=== PATIENT | male | born 1950 | race African-American/Black ===

== ENCOUNTER 2017-05-07 09:07 | Outpatient (CLI) | payer MEDICARE ==
--- NOTE | 2017-05-07 10:54 | ULT ---
BILATERAL RENAL ULTRASOUND: Date: 05/07/17 HISTORY: Chronic renal disease. FINDINGS: The right kidney measures 9.8 cm in length and the left kidney measures 9.2 cm in length. No focal m ass or hydronephrosis is seen. No shadowing calculi are identified. Cortical echogenicity and thickn ess is normal. The urinary bladder volume is 128 mL. The bladder has a normal appearance. IMPRESSION: Unremarkable exam. POS: TERRY
== END 2017-05-07 09:08 | disposition home or self-care (01) ==
LOC: ULT 09:07
PROVIDERS: ATTEND Internal Medicine Nephrology
DX: N18.2 Chronic kidney disease, stage 2 (mild) (principal)
CPT/HCPCS: 76770

== ENCOUNTER 2017-11-10 20:30 | Inpatient (IN) | payer MEDICARE ==
[2017-11-10] MEDS ORDERED: Nitroglycerin 50 MG/250 ML BOT 250 ML ONE (20:51)
[2017-11-10 21:00] LABS: #Basophils 0.1 thou/uL (0.0-0.2); #Eosinphils 0.3 thou/uL (0.0-0.7); #Lymphocytes 1.4 thou/uL (1.20-3.40); #Monocytes 0.7 thou/uL (0.11-0.59); #Neutrophils 3.5 thou/uL (1.40-6.50); %Basophils 0.9 % (0.0-1.0); %Eosinophils 4.9 % (0.0-10.0); %Lymphocytes 23.8 % (21.0-51.0); %Monocytes 11.2 % (0.0-10.0); %Neutrophils 59.3 % (42.0-75.0); Hemoglobin 13.4 g/dL (14.0-18.0); Mean Corpuscular HGB CONC 32.9 g/dL (32.0-36.0); Mean Corpuscular Hemoglobin 30.3 pg (27.0-31.0); Mean Corpuscular Volume 92.1 fl (80.0-94.0); Mean Platelet Volume 6.9 fL (7.4-10.4); Platelet Count 168 thou/uL (130-400); RBC Distribution Width 11.5 % (11.5-14.5); Red Blood Cell (RBC) Count 4.42 mill/uL (4.70-6.10); White Blood Cell (WBC) Count 5.8 thou/uL (4.8-10.8)
--- NOTE | 2017-11-10 21:20 | RAD ---
UPRIGHT PORTABLE CHEST ONE VIEW: 11/10/17 HISTORY: 67-year-old male with history of dyspnea and trouble breathing for several days. COMPARISON: There is cardiomegaly with some bilateral vascular congestion. No confluent pneumonia, overt edema, o r pleural effusion. IMPRESSION: Cardiomegaly with mild vascular congestion, stable from prior study. POS: RUTH
[2017-11-10 21:27] LABS: CKMB 1.8 ng/mL (0-6.6); Troponin I Less than 0.010 ng/mL (< 0.028)
[2017-11-10 22:05] LABS: Anion Gap 10 mmol/L (10-20); BUN (Urea Nitrogen) 14 mg/dL (8.4-25.7); Calc. Creatinine Clearance 0 mL/min (70-130); Carbon Dioxide 35 mmol/L (23-31); Chloride 99 mmol/L (98-107); Estimated GFR-MDRD 64; Potassium 4.5 mmol/L (3.5-5.1); Sodium 139 mmol/L (136-145)
[2017-11-10 22:06] LABS: ALT (SGPT) 16 U/L (8-55); AST (SGOT) 19 U/L (5-34); Albumin 4.2 g/dL (3.4-4.8); Alkaline Phosphatase 78 U/L (40-150); Bilirubin, Total 0.4 mg/dL (0.2-1.2); Calcium 9.2 mg/dL (7.8-10.44); Globulin 3.4 g/dL (2.4-3.5); Glucose 120 mg/dL (80-115); Protein, Total 7.6 g/dL (5.8-8.1)
[2017-11-10] MEDS ORDERED: Furosemide 40 MG/4 ML VIAL ONE (22:18)
[2017-11-11] MEDS ORDERED: Nitroglycerin 2% Ointment 1 INCH/1 GM Packet ONE (00:08)
[2017-11-11 01:05] VITALS: BMI 45.9
[2017-11-11] MEDS ORDERED: Nitroglycerin 2% Ointment 1 INCH/1 GM Packet TOP PRN (02:46)
[2017-11-11] MEDS: cloNIDine 0.1 MG TAB PO PRN (02:51)
--- NOTE | 2017-11-11 08:39 | HP ---
CHIEF COMPLAINT: Shortness of breath and elevated blood pressure. HISTORY OF PRESENT ILLNESS: This is a pleasant 67-year-old gentleman with a history of multiple medi linda problems to include obesity, hypertension, hyperlipidemia, and diabetes. He presents he states with a several day history of increasing shortness of breath and orthopnea. He denied drinking too many fluids and also having excess salt intake. He denies any chest, arm or thomas k pain. However, he became concerned as he could not breathe. He presented to the hospital and was found to have acute hypoxia and respiratory distress. Therefore, given IV diuretics and later sent t o IMCU. Currently the patient is on BiPAP. He seems to be hemodynamically stable, in no acute distr ess. His BNP was not impressive, less than 100. PAST MEDICAL HISTORY: 1. Diabetes. 2. Hypertension. 3. Hyperlipidemia. 4. Obesity. 5. Obstructive sleep apnea. 6. History of congestive heart failure. 7. Chronic kidney disease. 8. History of anemia. PAST SURGICAL HISTORY: History of coronary disease with stent placement in the past. Also, history of EGD and colonoscopy in 2004 with polyp resections in the colon, benign. ALLERGIES: None. MEDICATIONS: 1. Coreg 25 mg b.i.d. 2. Clonidine 0.1 mg b.i.d. 3. B12 1000 mcg 4. Lasix 40 mg every day. 5. Neurontin 300 mg t.i.d. 6. Isosorbide 30 mg every day. 7. Metformin 1000 mg b.i.d. 8. Multivitamin every day. 9. Nitroglycerin 0.4 sublingual p.r.n. chest pain. 10. Zocor 20 mg at bedtime. 11. Terazosin 5 mg every day. SOCIAL HISTORY: He does not smoke, he does not drink alcohol. FAMILY HISTORY: Negative. REVIEW OF SYSTEMS: GENERAL: Admits to weakness and fatigue, no fever or chills. HEENT: No diplopia or amaurosis fugax, tinnitus or hoarseness. CARDIOVASCULAR: No chest, arm or back pain. PULMONARY: See history of present illness. GASTROINTESTINAL: No GI bleed, constipation, diarrhea. GENITOURINARY: No dysuria, nocturia, oliguria, polyuria. ENDOCRINE: No polydipsia or heat or cold intolerance. MUSCULOSKELETAL: Admits to arthralgia. No lupus or myopathy. NEURO: No history of TIA or seizure. All systems are negative. PHYSICAL EXAMINATION: GENERAL: Pleasant gentleman who appears to be in no acute distress. He is on BiPAP. VITAL SIGNS: His vital signs are much better than when he came in. His blood pressure was 220 when he came in, now is 170/78, pulse 70, respirations 20. He is afebrile. NECK: Supple. JVP cannot be assessed due to obese neck. Carotid had good upstroke with no thyromeg niurka. COR: Regular rate and rhythm. CHEST: Symmetrical. Clear to auscultation and percussion upper lobes; however, bibasilar crackles. ABDOMEN: Soft, obese, nontender. Normoactive bowel sounds. No bruit or organomegaly. EXTREMITIES: No edema or cyanosis. He had palpable pedal pulses. SKIN: There is no evidence of ulcer, lesion or rash. NEUROLOGIC: He is awake, alert, and oriented to person, place, and time. LABORATORY: White blood cell 5.8, H&H 13.4 and 40.8, platelet 168. His BUN is 14, creatinine 1.34. Liver enzymes normal. BNP is unremarkable. His cardiac enzymes are normal as well. His chest x-ra y showed cardiomegaly with vascular congestion. ASSESSMENT: 1. Acute respiratory failure. 2. History of congestive heart failure. 3. Obstructive sleep apnea. 4. Hypertensive urgency. 5. Diabetes. 6. Hyperlipidemia. 7. Chronic renal insufficiency. 8. Multiple medical problems. PLAN: 1. The patient will be admitted where he will be diuresed with IV diuretics. We will check echocard iogram since it has been over a year for that. 2. We will begin checking blood sugars a.c. and at bedtime and placed on a controlled fat diet/ 1800 ADA diet. 3. We will check CBC, CMP, lipid profile, and hemoglobin A1c and chest x-ray tomorrow morning. 4. 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 5. We will resume his home medications. The patient verbalized understanding and all questions answered to satisfaction.
[2017-11-11] MEDS ORDERED: Dextrose 5% in Water 1,000 ML IV PRN (08:43)
[2017-11-11] MEDS ORDERED: Insulin Regular 300 UNITS/3 ML VIAL SC PRN (08:43)
[2017-11-11] MEDS ORDERED: Dextrose 50% Abboject 50 ML SYRINGE IVP PRN (08:43)
[2017-11-11] MEDS ORDERED: Furosemide 40 MG/4 ML VIAL SLOW IVP SCH (08:45)
[2017-11-11] MEDS ORDERED: Prevnar 13-Val Conj/PF 0.5 ML SYRINGE IM ONE (09:00)
[2017-11-11] MEDS: Prenatal Vitamin 1 TAB PO SCH (10:56)
[2017-11-11] MEDS: cloNIDine 0.1 MG TAB PO SCH ×2 (10:56→20:38)
[2017-11-11] MEDS: Cyanocobalamin (Vitamin B-12) 1,000 MCG TAB PO SCH (10:57)
[2017-11-11] MEDS: Carvedilol 25 MG TAB PO SCH ×2 (10:57→20:38)
[2017-11-11] MEDS: Gabapentin 300 MG CAP PO SCH ×3 (10:57→20:38)
--- NOTE | 2017-11-11 12:05 | CON ---
DATE OF CONSULTATION: 11/11/2017 SERVICE: Pulmonary Medicine. REASON FOR CONSULTATION: Respiratory failure. HISTORY OF PRESENT ILLNESS: The patient is a 67-year-old -[place] male with past medical history significant for hypertension. He was previously on Lasix. This was stopped about [address], he went to a routine outpatient followup appointment with Dr. Nance yesterday. At that appointment, he reported having a cough for a day or two, but did not think much of it. He was not having any shortness of breath at that time. After leaving the appointment, at about 3:00 or 4:00 in the afternoon, he started having increasing dyspnea that became very severe. He ultimately presented to the Emergency Department and was found to have pulmonary edema. He was given some Lasix. His blood pressures were extraordinarily elevated and he was put on nitro paste. Once his blood pressures became under better control, his breathing and oxygen requirements improved dramatically. He currently denies any fevers, chills, nausea, vomiting, dysuria, diarrhea, constipation, new rashes, arthralgia. PAST MEDICAL HISTORY: 1. Hypertension. 2. Obstructive sleep apnea, severe. 3. Type 2 diabetes mellitus. 4. Hypertension. 5. Dyslipidemia. 6. Morbid obesity. 7. Chronic kidney disease. 8. Anemia. 9. Heart failure. PAST SURGICAL HISTORY: 1. Percutaneous coronary intervention. 2. EGD. 3. Colonoscopy. 4. Polyp resection of the colon. ALLERGIES: No known drug allergies. MEDICATIONS: List of his outpatient medications was reviewed. He is on three separate medications that drop blood pressure. Of note, he was not taking Lasix prior to this admission. SOCIAL HISTORY: Negative for alcohol, tobacco or illicit drug use. He has no exposure to chemicals, dust asbestos or tuberculosis. FAMILY HISTORY: Noncontributory. REVIEW OF SYSTEMS: General, head, eyes, nose, throat, cardiovascular, respiratory, GI, , musculoskeletal, neurologic and skin is negative except as mentioned in the HPI. PHYSICAL EXAMINATION: VITAL SIGNS: Afebrile, pulse 69, blood pressure 168/71, respirations 20, saturation 100% on room air now. HEENT: Normocephalic, atraumatic. Sclerae are white, conjunctivae pink. Oral mucosa is moist without lesions. GENERAL: The patient is awake, alert, no apparent distress. LUNGS: Decent air entry. Crackles are present. There is not a prolonged expiratory phase, though there are some minimal wheezing present. HEART: Normal rate, regular. ABDOMEN: Soft, nontender, nondistended. Bowel sounds are positive. MUSCULOSKELETAL: No cyanosis or clubbing. There is trace to 1+ pitting in the left lower extremity. There is trace pitting in the right lower extremity. GENITOURINARY: No Rico. NEUROLOGIC: Grossly nonfocal. LABORATORY DATA: Sodium 139. Creatinine 1.34. Basic metabolic profile is otherwise unremarkable. Liver function studies are negative. BNP is 77. Troponin is 0.01. Hemoglobin 13.4. CBC is otherwise unremarkable. IMAGING: Chest x-ray demonstrates soft tissue attenuation. Interstitial fullness is present. Pulmonary vascular congestion is present. The cardiac silhouette is enlarged, though this is a portable film. Otherwise, there is no acute cardiopulmonary abnormality identified. ASSESSMENT: 1. Acute hypoxic respiratory failure, resolved. 2. Acute on chronic diastolic heart failure. 3. Hypertensive emergency. 4. Obstructive sleep apnea. 5. Diabetes mellitus. PLAN: The CPAP will be continued at night as the patient has known sleep apnea. He has been weaned down to room air. We will continue to diurese him until he returns to euvolemia. He will likely need to go out on Lasix as he previously was not taking this medication in the outpatient setting. As long as his blood pressures remained under decent control, we should be able to avoid future episodes of this. Repeat echocardiogram is currently pending. I will add magnesium to tomorrow morning's laboratories and start a daily dose of p.o. Lasix. Pulmonary Critical Care will continue to follow in this location. I will notify Dr. Nance that his patient is in the hospital. 70 minutes have been devoted to this patient in various activities. I personally reviewed all imaging studies and laboratory data noted within this document. For fifty percent of this time, I was interacting with the patient at the bedside or coordinating care with the care team. For the remainder of the time I was immediately available to the patient in the hospital unit. ARIA
[2017-11-11] MEDS: metFORMIN 500 MG TAB PO SCH (17:03)
[2017-11-11] MEDS: Atorvastatin Calcium 10 MG TAB PO SCH (20:38)
[2017-11-11] MEDS: Terazosin HCl 5 MG CAP PO SCH (20:38)
[2017-11-12] MEDS: cloNIDine 0.1 MG TAB PO PRN (03:18)
[2017-11-12 04:38] LABS: #Eosinphils 0.2 thou/uL (0.0-0.7); #Lymphocytes 1.2 thou/uL (1.20-3.40); #Monocytes 0.7 thou/uL (0.11-0.59); #Neutrophils 4.1 thou/uL (1.40-6.50); %Basophils 0.1 % (0.0-1.0); %Eosinophils 3.8 % (0.0-10.0); %Lymphocytes 19.2 % (21.0-51.0); %Monocytes 11.2 % (0.0-10.0); %Neutrophils 65.6 % (42.0-75.0); Hemoglobin 12.2 g/dL (14.0-18.0); Mean Corpuscular HGB CONC 32.8 g/dL (32.0-36.0); Mean Corpuscular Hemoglobin 30.4 pg (27.0-31.0); Mean Corpuscular Volume 92.8 fl (80.0-94.0); Mean Platelet Volume 6.5 fL (7.4-10.4); Platelet Count 150 thou/uL (130-400); RBC Distribution Width 11.5 % (11.5-14.5); Red Blood Cell (RBC) Count 4.02 mill/uL (4.70-6.10); White Blood Cell (WBC) Count 6.3 thou/uL (4.8-10.8)
[2017-11-12 04:44] LABS: Hemoglobin A1c 5.9 % (4.0-6.0)
[2017-11-12 04:48] LABS: ALT (SGPT) 15 U/L (8-55); AST (SGOT) 16 U/L (5-34); Albumin 3.9 g/dL (3.4-4.8); Alkaline Phosphatase 72 U/L (40-150); Anion Gap 11 mmol/L (10-20); BUN (Urea Nitrogen) 19 mg/dL (8.4-25.7); Bilirubin, Total 0.3 mg/dL (0.2-1.2); Calc. Creatinine Clearance 91 mL/min (70-130); Carbon Dioxide 37 mmol/L (23-31); Cardiac Risk 3.1 (Less than 4.5); Chloride 93 mmol/L (98-107); Cholesterol 132 mg/dl (< 200 Desired); Estimated GFR-MDRD 53; Globulin 3.2 g/dL (2.4-3.5); Glucose 137 mg/dL (80-115); HDL Cholesterol 42 mg/dL (>60 Neg Risk); LDL Cholesterol, Calculated 79 mg/dL; Magnesium 1.6 mg/dL (1.6-2.6); Potassium 4.8 mmol/L (3.5-5.1); Protein, Total 7.1 g/dL (5.8-8.1); Sodium 136 mmol/L (136-145); Triglycerides 56 mg/dL (Less than 150)
--- NOTE | 2017-11-12 08:31 | PRG ---
DATE OF SERVICE: 11/12/2017 SUBJECTIVE: The patient had a good night. He is off of the BiPAP. He is breathing much better he s tated. He just ate breakfast and had a good breakfast. He denies any chest, arm or back pain. He s tates he is still hungry as he only ate oatmeal. PHYSICAL EXAMINATION: GENERAL: He is awake, alert, and oriented to person, place, and time. VITAL SIGNS: Blood pressure is high this morning at 7, 180/86, pulse 60, respiration 22, temperature 99.1. NECK: Supple. JVP cannot be assessed due to obese neck. Carotid had good upstroke with no thyromeg niurka. COR: Regular rate and rhythm. CHEST: Symmetrical. Clear to auscultation and percussion upper lobes, few crackles bibasilar. ABDOMEN: Soft, obese, nontender with normoactive bowel sounds. There is no bruit or organomegaly. EXTREMITIES: No edema or cyanosis. He had palpable pedal pulses. SKIN: There is no evidence of ulcers, lesion or rash. NEUROLOGIC: He is awake, alert, and oriented to person, place, and time. LABORATORY DATA: His white blood cell 6.3, H&H 12.2 and 37.3, platelet count is 150. His creatinine is 1.58. His blood sugar is 137. ASSESSMENT: 1. Respiratory failure. 2. Acute on chronic congestive heart failure. 3. Hypertensive emergency. 4. Diabetes. 5. Obstructive sleep apnea. 6. Obesity. 7. Multiple medical problems. PLAN: We will continue the same plan for now. We will go up on his blood pressure medication. I fe el like the patient is stable enough to go to telemetry if okay with Dr. Ivory. We will follow up with lab tomorrow. All questions were answered to the patient's satisfaction.
--- NOTE | 2017-11-12 08:57 | RAD ---
SINGLE VIEW OF THE CHEST: COMPARISON: 11/10/17. HISTORY: Shortness of breath. FINDINGS: A single view of the chest shows a normal-size cardiomediastinal silhouette. There is no evidence of consolidation, mass, or pleural effusion. The bones are unremarkable. IMPRESSION: No evidence of acute cardiopulmonary disease. POS: OFF
[2017-11-12] MEDS: metFORMIN 500 MG TAB PO SCH ×2 (08:59→16:55)
[2017-11-12] MEDS: cloNIDine 0.1 MG TAB PO SCH ×3 (08:59→21:57)
[2017-11-12] MEDS: Carvedilol 25 MG TAB PO SCH ×2 (08:59→21:57)
[2017-11-12] MEDS: Furosemide 40 MG TAB PO SCH (08:59)
[2017-11-12] MEDS: Cyanocobalamin (Vitamin B-12) 1,000 MCG TAB PO SCH (09:00)
[2017-11-12] MEDS: Gabapentin 300 MG CAP PO SCH ×3 (09:00→21:57)
[2017-11-12] MEDS: Prenatal Vitamin 1 TAB PO SCH (09:00)
--- NOTE | 2017-11-12 10:52 | PRG ---
DATE OF SERVICE: 11/12/2017 The patient was admitted with difficulty breathing. He said he is better. PHYSICAL EXAMINATION: VITAL SIGNS: Sats are 96 on 2 liters, respirations 20, blood pressure 170/78, temperature 99. CHEST: Chest revealed decreased breath sounds, no wheezing. CARDIAC: Normal S1, S2, no gallops. ABDOMEN: Soft, no mass. EXTREMITIES: Trace edema. LABORATORY DATA: White count 6000, H&H 12 and 37, platelet count 150, creatinine 1.5. X-ray shows no acute infiltrate. IMPRESSION: 1. Acute on chronic respiratory failure. 2. Chronic obstructive pulmonary disease exacerbation. 3. Sleep apnea. 4. Renal failure. 5. Diabetes, poor compliance. PLAN: Nebs, Symbicort, nocturnal ventilation. I will follow while in the IM.
[2017-11-12] MEDS: Mometasone/Formoterol 120 PUFF INHALER INH SCH (18:39)
[2017-11-12] MEDS: Atorvastatin Calcium 10 MG TAB PO SCH (21:57)
[2017-11-12] MEDS: Terazosin HCl 5 MG CAP PO SCH (21:57)
[2017-11-13 05:30] LABS: ALT (SGPT) 15 U/L (8-55); AST (SGOT) 16 U/L (5-34); Albumin 3.8 g/dL (3.4-4.8); Alkaline Phosphatase 70 U/L (40-150); BUN (Urea Nitrogen) 24 mg/dL (8.4-25.7); Bilirubin, Total 0.3 mg/dL (0.2-1.2); Calc. Creatinine Clearance 83 mL/min (70-130); Calcium 9.1 mg/dL (7.8-10.44); Estimated GFR-MDRD 48; Globulin 3.1 g/dL (2.4-3.5); Glucose 120 mg/dL (80-115); Magnesium 1.5 mg/dL (1.6-2.6); Protein, Total 6.9 g/dL (5.8-8.1)
[2017-11-13 05:39] LABS: Anion Gap 14 mmol/L (10-20); Carbon Dioxide 34 mmol/L (23-31); Chloride 94 mmol/L (98-107); Potassium 4.8 mmol/L (3.5-5.1); Sodium 137 mmol/L (136-145)
[2017-11-13] MEDS: Mometasone/Formoterol 120 PUFF INHALER INH SCH ×2 (06:46→18:41)
--- NOTE | 2017-11-13 08:50 | PRG ---
DATE OF SERVICE: 11/13/2017 SUBJECTIVE: The patient had a good night. He is sitting in the chair. He is breathing okay. He de nies any complaints. PHYSICAL EXAMINATION: GENERAL: Upon evaluation, he is awake, alert, and oriented to person, place and time. VITAL SIGNS: His blood pressure is 140/60, pulse 63, respiration 22. He is afebrile. NECK: Supple with no increased JVP or carotid bruit. Carotid had good upstroke with no thyromegaly. COR: Regular rate and rhythm. CHEST: Symmetrical. Clear to auscultation and percussion. ABDOMEN: Soft, obese, nontender. Normoactive bowel sounds. There is no bruit or organomegaly. EXTREMITIES: No edema or cyanosis. Palpable pedal pulses. SKIN: There is no evidence of ulceration, lesion, or rash. NEUROLOGIC: He is awake, alert, and oriented to person, place, and time. ASSESSMENT: 1. Acute on chronic congestive heart failure. 2. Hypertension. 3. Obesity. 4. Diabetes. 5. Noncompliance. PLAN: I thought the patient is ready to go to telemetry; however, I think there are not any beds, so we will keep here until there is a bed available. We will follow up with CMP in the morning. His l ast chest x-ray was negative, so we will not repeat that for right now. I appreciate Dr. Nance follow ing the patient along with us. This is SHEN Salmeron-Edward dictating for Dr. Kale Alejandro.
[2017-11-13] MEDS: Furosemide 40 MG TAB PO SCH (09:06)
[2017-11-13] MEDS: Carvedilol 25 MG TAB PO SCH ×2 (09:06→20:25)
[2017-11-13] MEDS: Cyanocobalamin (Vitamin B-12) 1,000 MCG TAB PO SCH (09:07)
[2017-11-13] MEDS: Prenatal Vitamin 1 TAB PO SCH (09:07)
[2017-11-13] MEDS: Gabapentin 300 MG CAP PO SCH ×3 (09:07→20:25)
[2017-11-13] MEDS: cloNIDine 0.1 MG TAB PO SCH ×3 (09:07→20:25)
[2017-11-13] MEDS: metFORMIN 500 MG TAB PO SCH ×2 (09:09→18:13)
[2017-11-13] MEDS: Atorvastatin Calcium 10 MG TAB PO SCH (20:25)
[2017-11-13] MEDS: Terazosin HCl 5 MG CAP PO SCH (20:25)
[2017-11-14] MEDS: cloNIDine 0.1 MG TAB PO PRN (00:41)
[2017-11-14 05:36] LABS: ALT (SGPT) 14 U/L (8-55); AST (SGOT) 15 U/L (5-34); Albumin 3.8 g/dL (3.4-4.8); Alkaline Phosphatase 71 U/L (40-150); BUN (Urea Nitrogen) 28 mg/dL (8.4-25.7); Bilirubin, Total 0.4 mg/dL (0.2-1.2); Calc. Creatinine Clearance 100 mL/min (70-130); Calcium 9.3 mg/dL (7.8-10.44); Estimated GFR-MDRD 60; Glucose 116 mg/dL (80-115); Magnesium 1.5 mg/dL (1.6-2.6); Protein, Total 6.8 g/dL (5.8-8.1)
[2017-11-14 05:45] LABS: Anion Gap 16 mmol/L (10-20); Carbon Dioxide 32 mmol/L (23-31); Chloride 93 mmol/L (98-107); Potassium 4.3 mmol/L (3.5-5.1); Sodium 137 mmol/L (136-145)
[2017-11-14 07:17] VITALS: TEMP 98.1
[2017-11-14] MEDS: Prenatal Vitamin 1 TAB PO SCH (08:36)
[2017-11-14] MEDS: Gabapentin 300 MG CAP PO SCH (08:36)
[2017-11-14] MEDS: metFORMIN 500 MG TAB PO SCH (08:36)
[2017-11-14] MEDS: Cyanocobalamin (Vitamin B-12) 1,000 MCG TAB PO SCH (08:36)
[2017-11-14] MEDS: cloNIDine 0.1 MG TAB PO SCH (08:36)
[2017-11-14] MEDS: Furosemide 40 MG TAB PO SCH (08:36)
[2017-11-14] MEDS: Carvedilol 25 MG TAB PO SCH (08:36)
[2017-11-14 08:37] VITALS: BP 184/97
--- NOTE | 2017-11-14 11:15 | PRG ---
DATE OF SERVICE: 11/13/2017 SUBJECTIVE: Ned Alejandro appears to be at his baseline, no shortness of breath , no coughing. OBJECTIVE: VITAL SIGNS: Sats are 91% on room air, temperature 98, blood pressure 184/87. CHEST: Decreased breath sounds, no wheezing. CARDIAC: Normal S1, S2, no gallops. ABDOMEN: Soft. LABORATORY DATA: Creatinine is 1.73. IMPRESSION: 1. Chronic obstructive pulmonary disease exacerbation. 2. Morbid obesity. 3. Sleep apnea. 4. Diabetes. 5. Severe deconditioning. PLAN: He appears to be at his baseline. He can be transferred home anytime. ARIA
[2017-11-14] MEDS: Mometasone/Formoterol 120 PUFF INHALER INH SCH (11:16)
--- NOTE | 2017-11-14 13:58 | PRG ---
DATE OF SERVICE: 11/14/2017 SUBJECTIVE: This morning, he is better, he is less short of breath. OBJECTIVE: VITAL SIGNS: His blood pressure is 180/90, sats are 94, respirations 33, temperature 98. He is afeb rile. CHEST: Decreased breath sounds, no wheezing. CARDIAC: Normal S1, S2, no gallops. ABDOMEN: Soft without any masses. LABORATORY DATA: Creatinine 1.43. IMPRESSION: 1. Chronic obstructive pulmonary disease. 2. Congestive heart failure. 3. Obstructive sleep apnea. 4. Noncompliance. 5. Renal failure. PLAN: He appears to be stable enough to be transferred out of the MICU. Hopefully, he will be disch arged home in the next day or two. Pulmonary will follow.
--- NOTE | 2017-11-15 19:39 | DIS ---
DATE OF DISCHARGE: 11/14/2017 FINAL DIAGNOSES: 1. Acute on chronic congestive heart failure. 2. Hypertension urgency. 3. Obesity. 4. Diabetes. 5. Hyperlipidemia. COMPLICATIONS: None. PROCEDURES: None. CONSULTANTS: Dr. Ivory. HOSPITAL COURSE: This is a pleasant gentleman, who presents to the hospital with increasing shortnes s of breath. He was diuresed with IV diuretics. His home medications were resumed. His blood press ure medication had to be adjusted from clonidine 0.1 mg b.i.d. to 0.1 t.i.d. The patient's IV diuret ics were eventually changed to p.o. His blood pressure remained good. He was on BiPAP and eventuall y got off his BiPAP. His breathing was good. He was able to get in the chair. He was diuresing wel l. He had no chest pain. He had no breathing problems. We did place 11/13/2017 to move to [facility]; however, they deny any bed so therefore he stayed in [facility]. His lab showed BNP 28, creatinin e 1.43. His blood sugar was anywhere from 128-173. His white blood cell count was normal. His H&H was 12.2 and 37.3, platelet count was 150. His chest x-ray showed no evidence of acute cardiopulmona ry disease. The patient was ready to go home. He had no complaints. He was discharged home 018 in stable condition. Diet was controlled fat/1800 calorie ADA diet with no salt. DISCHARGE MEDICATIONS: 1. Coreg 25 mg b.i.d. 2. Gabapentin 300 mg t.i.d. 3. Metformin 1000 mg b.i.d. 4. Nitroglycerin 0.4 mg SL p.r.n. chest pain as directed. 5. Simvastatin 20 mg at bedtime. 6. Actos 45 mg every day. 7. Potassium 20 mEq every day. 8. Isosorbide 30 mg every day. 9. Lasix 40 mg in the morning. 10. Clonidine 0.1 mg t.i.d. 11. Terazosin 5 mg every day. FOLLOWUP: He will followup with Dr. Alejandro in 1 week or prior to that if he has any complications. T he patient verbalized understanding. Total time spent with this patient after reviewing the patient dictating with 30 minutes. This is Sherlyn Olguin MARKET RESEARCH CONSULTANT-C dictating for Dr. Kale Alejandro M.D.
== END 2017-11-14 15:56 | disposition home or self-care (01) | DRG 291 ==
LOC: ERS 20:30 → IMCU/EMU 22:45
PROVIDERS: ADMIT Specialist; ATTEND Specialist
DX: I13.0 Hypertensive heart and chronic kidney disease with heart failure and stage 1 through stage 4 chronic kidney disease, or unspecified chronic kidney disease (principal); J96.01 Acute respiratory failure with hypoxia; N17.9 Acute kidney failure, unspecified; I50.33 Acute on chronic diastolic (congestive) heart failure; Z68.42 Body mass index [BMI] 45.0-49.9, adult; J44.1 Chronic obstructive pulmonary disease with (acute) exacerbation; E11.22 Type 2 diabetes mellitus with diabetic chronic kidney disease; E66.01 Morbid (severe) obesity due to excess calories; E78.5 Hyperlipidemia, unspecified; G47.33 Obstructive sleep apnea (adult) (pediatric); N18.9 Chronic kidney disease, unspecified; Z79.84 Long term (current) use of oral hypoglycemic drugs; I25.10 Atherosclerotic heart disease of native coronary artery without angina pectoris; Z95.5 Presence of coronary angioplasty implant and graft; I16.0 Hypertensive urgency; Z91.19 Patient's noncompliance with other medical treatment and regimen
CPT/HCPCS: 36415; 36416; 71045; 80053; 80061; 82553; 83036; 83735; 83880; 84484; 85025; 93005; 93306; 93798; 94640; 94660; 96365; 96366; 96374; J1940; J7620

== ENCOUNTER 2019-06-20 18:27 | Observation (INO) | payer MEDICARE ==
[2019-06-20 18:59] LABS: #Eosinphils 0.3 thou/uL (0.0-0.7); #Lymphocytes 1.4 thou/uL (1.20-3.40); #Monocytes 0.6 thou/uL (0.11-0.59); #Neutrophils 3.7 thou/uL (1.40-6.50); %Basophils 0.3 % (0.0-1.0); %Eosinophils 5.2 % (0.0-10.0); %Lymphocytes 22.5 % (21.0-51.0); %Monocytes 10.3 % (0.0-10.0); %Neutrophils 61.8 % (42.0-75.0); Hemoglobin 12.9 g/dL (14.0-18.0); Mean Corpuscular HGB CONC 33.2 g/dL (32.0-36.0); Mean Corpuscular Hemoglobin 30.6 pg (27.0-31.0); Mean Corpuscular Volume 92.1 fL (78.0-98.0); Mean Platelet Volume 7.1 fL (7.4-10.4); Platelet Count 177 thou/uL (130-400); RBC Distribution Width 11.7 % (11.5-14.5)
--- NOTE | 2019-06-20 19:01 | RAD ---
FRONTAL RADIOGRAPH CHEST: 06/20/19 COMPARISON: 11/12/17 HISTORY: Short of breath. FINDINGS: Stable prominence of the cardiac silhouette. Heart and mediastinal contours are unchanged. No pneumot horax or pleural fluid. No focal consolidation or alveolar edema. IMPRESSION: No acute findings. POS: SANDEE
[2019-06-20] MEDS ORDERED: Aspirin Chewable 81 MG TAB ONE (19:19)
[2019-06-20] MEDS ORDERED: Nitroglycerin 2% Ointment 1 INCH/1 GM Packet ONE (19:19)
[2019-06-20] MEDS ORDERED: Nitroglycerin 0.4 MG TAB 1 EACH ONE (19:19)
[2019-06-20 19:20] LABS: ALT (SGPT) 23 U/L (8-55); AST (SGOT) 25 U/L (5-34); Albumin 4.4 g/dL (3.4-4.8); Alkaline Phosphatase 81 U/L (40-110); Anion Gap 12 mmol/L (10-20); BUN (Urea Nitrogen) 23 mg/dL (8.4-25.7); Bilirubin, Total 0.4 mg/dL (0.2-1.2); Calc. Creatinine Clearance 0 mL/min (70-130); Calcium 9.4 mg/dL (7.8-10.44); Carbon Dioxide 27 mmol/L (23-31); Chloride 104 mmol/L (98-107); Estimated GFR-MDRD 46; Globulin 3.5 g/dL (2.4-3.5); Glucose 95 mg/dL (80-115); Potassium 5.5 mmol/L (3.5-5.1); Protein, Total 7.9 g/dL (5.8-8.1); Sodium 137 mmol/L (136-145)
[2019-06-21 00:26] VITALS: BMI 43.2
[2019-06-21 01:15] LABS: Troponin I 0.012 ng/mL (< 0.028)
[2019-06-21] MEDS ORDERED: Furosemide 40 MG/4 ML VIAL SLOW IVP SCH (08:15)
[2019-06-21] MEDS ORDERED: Communication Order-Pharmacy FS SCH (08:15)
[2019-06-21] MEDS ORDERED: Nitroglycerin 0.4 MG TAB (25 Tab Bottle) SL PRN (08:17)
[2019-06-21] MEDS ORDERED: cloNIDine 0.1 MG TAB PO PRN (08:17)
--- NOTE | 2019-06-21 08:25 | CON ---
DATE OF CONSULTATION: 06/21/2019 REASON FOR CONSULTATION: Chest pain. 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 Alejandro is a very pleasant 69-year-old gentleman, who recently presented with unstable angina type symptoms. He states he has been in normal state of health when he had 4 episodes of chest pain several hours apart. They were relieved with nitroglycerin. He has had after fourth episode proceeded to the emergency room. His EKG did show some changes noted inferiorly when compared to previous EKG. He is currently chest pain free. PAST MEDICAL HISTORY: CAD, status post stent placement to the circumflex artery with 3.5 and a 3.0 PROMUS stent in 2009, hypertension, diabetes mellitus, obesity, hyperlipidemia, and obstructive sleep apnea. ALLERGIES: NONE. SOCIAL HISTORY: No current tobacco or alcohol use. HOME MEDICATIONS: Include Coreg, gabapentin, glipizide, Imdur, lisinopril, risperidone, Actos, clonidine, trazodone, metformin, and aspirin. REVIEW OF SYSTEMS: A 10-point review of systems is reviewed as above, otherwise negative. PHYSICAL EXAMINATION: GENERAL: Patient is a pleasant 69-year-old gentleman who is in no acute distress. The patient appears their stated age. VITAL SIGNS: Blood pressure 171/84, pulse 57, temperature afebrile. NEUROLOGIC: The patient is alert and oriented x3 with no focal neurologic deficits. HEENT: Sclerae without icterus. Mouth has moist mucous membranes with normal pallor. NECK: No JVD. Carotid upstroke brisk. No bruits bilaterally. LUNGS: Clear to auscultation with unlabored respirations. BACK: No scoliosis or kyphosis. CARDIAC: Regular rate and rhythm with normal S1 and S2. No S3 or S4 noted. No significant rubs, murmurs, thrills, or gallops noted throughout the precordium. PMI is not displaced. There is no parasternal heave. ABDOMEN: Soft, nontender, nondistended. No peritoneal signs present. No hepatosplenomegaly. No abnormal striae. EXTREMITIES: 2+ femoral and 2+ dorsalis pedis pulses. No cyanosis, clubbing, or edema. SKIN: No gross abnormalities. PERTINENT LABORATORY DATA: Hemoglobin 12.9, creatinine 1.77 with a creatinine clearance greater than 70. EKG normal sinus rhythm with inverted T-waves noted inferiorly. When compared to previous EKG 1 year ago, these appear new. IMPRESSION: 1. Unstable angina. 2. Coronary artery disease. 3. Status post stent placement. 4. Obstructive sleep apnea. RECOMMENDATIONS: At this point, given his recent history in addition to EKG changes, recommend coronary angiography plus PCI. I discussed procedure in full detail with Mr. Alejandro. Risks included, but not limited to the following: I discussed the procedure in full detail with the patient. The risks of the procedure were also discussed. The risks of the procedure include but are not limited to the following: , stroke, PR, need for emergency surgery, loss of limb, bleeding, and infection, as well as a reaction to the dye causing kidney failure and needing long-term dialysis. I also discussed the risks of PCI to include all of the above including coronary dissection and perforation in addition to acute stent thrombosis and restenosis. All questions about the procedure were answered. Given the above, the patient agreed to proceed with coronary angiography and possible PCI. All questions answered given the above. The patient agreed to proceed with above procedure. There are no contraindications to drug coated stent placement. We will proceed if needed. Further recommendations pending the above. Job ID: [id number]
[2019-06-21] MEDS: Sodium Chloride 0.9% 1,000 ML IV SCH ×3 (08:44→16:56)
[2019-06-21] MEDS: Gabapentin 300 MG CAP PO SCH ×2 (08:45→21:45)
[2019-06-21] MEDS: Aspirin Chewable 81 MG TAB PO SCH (08:46)
[2019-06-21] MEDS: Carvedilol 25 MG TAB PO SCH ×2 (08:46→21:45)
[2019-06-21] MEDS: Lisinopril 10 MG TAB PO SCH ×2 (08:46→21:45)
[2019-06-21] MEDS: hydrALAZINE 25 MG TAB PO SCH ×3 (08:47→21:45)
--- NOTE | 2019-06-21 11:55 | HP ---
CHIEF COMPLAINT: Chest pain. HISTORY OF PRESENT ILLNESS: The patient is a 69-year-old male, who has a prior history of coronary artery disease with stent placement, who states that a day prior to admission, he began to have substernal chest pain. He would take his oral nitroglycerin and it would go away. When finally on the day of admission, he repeated his nitroglycerin and the chest pain did not go away, then he came to the emergency room for further evaluation. There he was initially noted to have negative EKG changes, negative troponins, but with his extensive history and uncontrolled blood pressure, it was elected to put him in for further treatment. As an outpatient, the patient has been very compliant coming to the office with good blood sugars and good blood pressures. He has been taking his medicines and get his followup care as directed. Does not smoke or drink alcoholic beverages. States that he is wearing his CPAP. The patient's chest pain was substernal. It did not radiate. He was not diaphoretic or become short winded. There was no nausea or vomiting associated with it. It felt like pressure and initially was relieved with the oral sublingual nitroglycerin. In consultation with ER doctor, it was determined this being an unstable angina because he was at rest when it occurred. PAST MEDICAL HISTORY: As mentioned above is positive for hypertension, extreme obesity, obstructive sleep apnea, hypertension, coronary artery disease with stent placement x2, he has type 2 diabetes that has been well controlled with diet, high cholesterol, history of anemia, chronic kidney disease, as well as congestive heart failure in the past. PAST SURGICAL HISTORY: Positive for 2 stents. Additionally, had EGD and colonoscopy in 2004 where polyps were found and they returned benign. ALLERGIES: NONE. MEDICATIONS ON ADMISSION: Include: 1. Coreg 25 mg p.o. b.i.d. 2. Lasix 40 mg q.a.m. 3. Gabapentin 300 mg b.i.d. 4. Imdur 30 mg daily. 5. Nitroglycerin 0.4 mg sublingually p.r.n. q.5 minutes, if unrelieved after 3, go to the ER. 6. Zocor 20 mg q.h.s. 7. Aspirin 81 mg daily. 8. Lisinopril 10 mg b.i.d. 9. Hydralazine 25 mg p.o. t.i.d. 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 Does not smoke or drink alcohol and is . FAMILY HISTORY: Unremarkable. REVIEW OF SYSTEMS: CONSTITUTIONAL: Constitutionally on admission, denies fever, chills, or general malaise. HEENT: Denies drainage or sores in eyes, ears, nose, or throat. CHEST: Denies shortness of breath or cough. CARDIOVASCULAR: Denies palpitations, but does have substernal chest pain and pressure as reason for admission. GI: Denies nausea, vomiting, or diarrhea. : Denies blood in urine or stool or dysuria. MUSCULOSKELETAL: Denies any aches or pains in major joints. SKIN: No new rashes or lesions. LYMPHATICS: No new areas of edema. NEUROLOGIC: Denies headaches or any atypical hypoesthesia or paresthesias or trouble with mentation. PHYSICAL EXAMINATION: VITAL SIGNS: At the time of admission, blood pressure noted to be 224/98 initially and then it came down to 154/68; pulse has been in the 50s and 60s; respirations 18; temperature 98.6; pain scale initially as a 6 and 7, now down to 2; O2 saturation 96% on room air. GENERAL: This is a morbidly obese male, alert, oriented, cooperative. HEENT: Normocephalic, atraumatic. Pupils are equal, round, and reactive to light. Extraocular muscles are intact. TMs, nares, pharynx are clear. NECK: Supple. Unable to appreciate any bruits. CHEST: Clear to auscultation. HEART: Regular rate and rhythm without murmur. ABDOMEN: Obese. Unable to appreciate organomegaly. : Deferred. EXTREMITIES: Without clubbing or cyanosis. There is 1+ edema bilaterally. SKIN: No new rashes or lesions. NEUROLOGIC: Cranial nerves are intact. Gait and cerebellar function are not tested. Sensory exam is grossly intact. Mental status is at baseline and nonfocal. LABORATORY DATA: EKG on admission shows normal sinus rhythm at 65 beats per minute. No ectopy. Nonspecific T waves are noted. The chest x-ray on admission shows no acute findings. Troponins initially x3 are negative. Sodium 137, potassium 5.5, chloride 104, CO2 of 27, BUN 23, creatinine 1.77, glucose 95, ylwai-lk-lazt sugar at 174. Liver functions normal. WBCs at 6, hemoglobin 12.9, hematocrit 38.7 with platelets of 177. ASSESSMENT: 1. Unstable angina. 2. History of coronary artery disease with stents placement x2. 3. Qxf-zojugpr-grbsjeefm diabetic, controlled with diet and exercise this time. 4. Hyperlipidemia. 5. Hypertension has been well controlled as an outpatient, currently is uncontrolled. 6. Obstructive sleep apnea. 7. Extreme obesity. PLAN: Initially, a stress test, but with all his risk factors, Dr. Allen has decided to take him to the catheterization laboratory technician for further evaluation. He will be continued n.p.o. except for sips of water and his medications and we will serially re-evaluate and provide nitrates for pain and control his blood pressure. Job ID: [id number]
[2019-06-21 12:08] LABS: #Eosinphils 0.2 thou/uL (0.0-0.7); #Lymphocytes 1.1 thou/uL (1.20-3.40); #Monocytes 0.5 thou/uL (0.11-0.59); %Basophils 0.4 % (0.0-1.0); %Lymphocytes 23.6 % (21.0-51.0); %Monocytes 9.5 % (0.0-10.0); %Neutrophils 61.5 % (42.0-75.0); Hemoglobin 12.6 g/dL (14.0-18.0); Mean Corpuscular HGB CONC 32.5 g/dL (32.0-36.0); Mean Corpuscular Hemoglobin 29.5 pg (27.0-31.0); Mean Corpuscular Volume 90.9 fL (78.0-98.0); Mean Platelet Volume 6.9 fL (7.4-10.4); Platelet Count 170 thou/uL (130-400); RBC Distribution Width 11.6 % (11.5-14.5); Red Blood Cell (RBC) Count 4.28 mill/uL (4.70-6.10); White Blood Cell (WBC) Count 4.9 thou/uL (4.8-10.8)
[2019-06-21 12:16] LABS: Hemoglobin A1c 6.2 % (4.0-6.0)
[2019-06-21 12:33] LABS: Anion Gap 10 mmol/L (10-20); BUN (Urea Nitrogen) 23 mg/dL (8.4-25.7); Calc. Creatinine Clearance 79 mL/min (70-130); Calcium 9.5 mg/dL (7.8-10.44); Carbon Dioxide 29 mmol/L (23-31); Cardiac Risk 3.7 (Less than 4.5); Chloride 104 mmol/L (98-107); Cholesterol 134 mg/dl (< 200 Desired); Estimated GFR-MDRD 48; Glucose 121 mg/dL (80-115); HDL Cholesterol 36 mg/dL (>60 Neg Risk); LDL Cholesterol, Calculated 87 mg/dL; Potassium 5.2 mmol/L (3.5-5.1); Sodium 138 mmol/L (136-145); Triglycerides 55 mg/dL (Less than 150)
[2019-06-21] MEDS ORDERED: Iopamidol 370 76% 100 ML VIAL ONE (13:37)
[2019-06-21] MEDS ORDERED: Iopamidol 370 76% 50 ML VIAL FS ONE (13:37)
[2019-06-21] MEDS ORDERED: Heparin (Artline) 1,000 ML ONE (14:30)
[2019-06-21] MEDS ORDERED: Verapamil 5 MG/2 ML VIAL ONE (14:30)
[2019-06-21] MEDS ORDERED: Heparin 10,000 UNITS/1 ML VIAL ONE (14:30)
[2019-06-21] MEDS ORDERED: Nitroglycerin 100MG/250ML BOT 250 ML ONE (14:30)
[2019-06-21] MEDS ORDERED: Midazolam HCl 2 mg/2 ml Vial ONE (15:10)
[2019-06-21] MEDS ORDERED: Fentanyl 100 MCG/2 ML VIAL ONE (15:10)
[2019-06-21] MEDS ORDERED: Clopidogrel Bisulfate 300 MG TAB ONE (15:43)
[2019-06-21] MEDS ORDERED: Atorvastatin Calcium 10 MG TAB PO SCH (21:00)
[2019-06-22] MEDS: Sodium Chloride 0.9% 1,000 ML IV SCH (03:20)
[2019-06-22 05:49] LABS: #Eosinphils 0.2 thou/uL (0.0-0.7); #Lymphocytes 1.2 thou/uL (1.20-3.40); #Monocytes 0.7 thou/uL (0.11-0.59); #Neutrophils 3.2 thou/uL (1.40-6.50); %Basophils 0.5 % (0.0-1.0); %Eosinophils 4.5 % (0.0-10.0); %Lymphocytes 22.1 % (21.0-51.0); %Monocytes 12.4 % (0.0-10.0); %Neutrophils 60.5 % (42.0-75.0); Hemoglobin 12.3 g/dL (14.0-18.0); Mean Corpuscular HGB CONC 33.4 g/dL (32.0-36.0); Mean Corpuscular Hemoglobin 30.6 pg (27.0-31.0); Mean Corpuscular Volume 91.7 fL (78.0-98.0); Platelet Count 158 thou/uL (130-400); RBC Distribution Width 11.8 % (11.5-14.5); White Blood Cell (WBC) Count 5.2 thou/uL (4.8-10.8)
[2019-06-22 06:15] LABS: ALT (SGPT) 22 U/L (8-55); AST (SGOT) 23 U/L (5-34); Albumin 3.9 g/dL (3.4-4.8); Alkaline Phosphatase 73 U/L (40-110); Anion Gap 11 mmol/L (10-20); BUN (Urea Nitrogen) 24 mg/dL (8.4-25.7); Bilirubin, Total 0.4 mg/dL (0.2-1.2); Calc. Creatinine Clearance 75 mL/min (70-130); Calcium 8.6 mg/dL (7.8-10.44); Carbon Dioxide 27 mmol/L (23-31); Chloride 103 mmol/L (98-107); Estimated GFR-MDRD 46; Globulin 3.3 g/dL (2.4-3.5); Glucose 110 mg/dL (80-115); Potassium 4.9 mmol/L (3.5-5.1); Protein, Total 7.2 g/dL (5.8-8.1); Sodium 136 mmol/L (136-145)
--- NOTE | 2019-06-22 08:22 | PRG ---
DATE OF SERVICE: 06/22/2019 SUBJECTIVE: Mr. Alejandro feels much better today. No current complaints. He recently underwent stent placement to the circumflex artery with a 2.5 x 12 mm Synergy stent. OBJECTIVE: VITAL SIGNS: Blood pressure 159/77, pulse 55, temperature afebrile. LUNGS: Clear to auscultation. HEART: Regular rate and rhythm. ABDOMEN: Soft, nontender, nondistended. EXTREMITIES: No edema. IMPRESSION: 1. Coronary artery disease. 2. Status post stent placement. 3. Unstable angina. RECOMMENDATIONS: 1. Mr. Alejandro is doing well. 2. Continue aspirin 81 q.a.m. 3. Continue Plavix 75 q.a.m. 4. Continue carvedilol 25 b.i.d., atorvastatin 10 mg nightly and lisinopril 10 mg one p.o. b.i.d. From my standpoint, will be okay for discharge with close outpatient followup. Job ID: [id number]
[2019-06-22] MEDS: hydrALAZINE 25 MG TAB PO SCH ×2 (08:55→16:18)
[2019-06-22] MEDS: Gabapentin 300 MG CAP PO SCH (08:55)
[2019-06-22] MEDS: Aspirin Chewable 81 MG TAB PO SCH (08:56)
[2019-06-22] MEDS: Carvedilol 25 MG TAB PO SCH (08:56)
[2019-06-22] MEDS ORDERED: Clopidogrel Bisulfate 75 MG TAB PO SCH (09:00)
[2019-06-22 14:45] LABS: Anion Gap 12 mmol/L (10-20); BUN (Urea Nitrogen) 25 mg/dL (8.4-25.7); Calc. Creatinine Clearance 75 mL/min (70-130); Calcium 8.5 mg/dL (7.8-10.44); Carbon Dioxide 27 mmol/L (23-31); Chloride 102 mmol/L (98-107); Estimated GFR-MDRD 46; Glucose 117 mg/dL (80-115); Potassium 4.8 mmol/L (3.5-5.1); Sodium 136 mmol/L (136-145)
[2019-06-22 15:34] VITALS: BP 139/75; TEMP 98.2
[2019-06-22] MEDS ORDERED: Sodium Chloride 0.9% 1,000 ML IV SCH (15:45)
[2019-06-22 17:46] LABS: Anion Gap 12 mmol/L (10-20); BUN (Urea Nitrogen) 25 mg/dL (8.4-25.7); Calc. Creatinine Clearance 77 mL/min (70-130); Calcium 8.6 mg/dL (7.8-10.44); Carbon Dioxide 26 mmol/L (23-31); Chloride 102 mmol/L (98-107); Estimated GFR-MDRD 47; Glucose 129 mg/dL (80-115); Sodium 135 mmol/L (136-145)
--- NOTE | 2019-06-25 16:13 | EKG ---
Test Reason : Blood Pressure : / mmHG Vent. Rate : 060 BPM Atrial Rate : 060 BPM P-R Int : 180 ms QRS Dur : 090 ms QT Int : 394 ms P-R-T Axes : 065 035 044 degrees QTc Int : 394 ms Normal sinus rhythm Normal ECG When compared with ECG of 20-JUN-2019 18:36, (Unconfirmed) No significant change was found Confirmed by DR. Chris CONTRERAS ([id number]) on 06/25/2019 4:13:31 PM Referred By: Confirmed By:DR. Chris CONTRERAS
--- NOTE | 2019-06-25 16:16 | EKG ---
Test Reason : Blood Pressure : / mmHG Vent. Rate : 055 BPM Atrial Rate : 055 BPM P-R Int : 152 ms QRS Dur : 096 ms QT Int : 406 ms P-R-T Axes : 014 032 015 degrees QTc Int : 388 ms Sinus bradycardia Otherwise normal ECG When compared with ECG of 21-JUN-2019 17:17, (Unconfirmed) No significant change was found Confirmed by DR. Chris CONTRERAS ([id number]) on 06/25/2019 4:16:19 PM Referred By: KAMI Confirmed By:DR. Chris CONTRERAS
== END 2019-06-22 19:21 | disposition home or self-care (01) ==
LOC: ERS 18:27 → 2SW 20:45
PROVIDERS: ADMIT Specialist; ATTEND Specialist
PROC: 027034Z Dilation of Coronary Artery, One Artery with Drug-eluting Intraluminal Device, Percutaneous Approach (ICD-10-PCS; principal; 2019-06-21)
PROC: 4A023N7 Measurement of Cardiac Sampling and Pressure, Left Heart, Percutaneous Approach (ICD-10-PCS; 2019-06-21)
PROC: B2111ZZ Fluoroscopy of Multiple Coronary Arteries using Low Osmolar Contrast (ICD-10-PCS; 2019-06-21)
DX: I25.110 Atherosclerotic heart disease of native coronary artery with unstable angina pectoris (principal); I11.0 Hypertensive heart disease with heart failure; I50.9 Heart failure, unspecified; E11.9 Type 2 diabetes mellitus without complications; E78.5 Hyperlipidemia, unspecified; G47.33 Obstructive sleep apnea (adult) (pediatric); E66.9 Obesity, unspecified; Z68.41 Body mass index [BMI] 40.0-44.9, adult; Z79.82 Long term (current) use of aspirin; Z79.84 Long term (current) use of oral hypoglycemic drugs; Z79.899 Other long term (current) drug therapy; Z95.5 Presence of coronary angioplasty implant and graft
CPT/HCPCS: 71045; 80048 ×2; 80053 ×2; 80061; 82962; 83036; 83880; 84484 ×3; 85025 ×3; 93005 ×3; 93306; 93454; 93798; 94760; 96361 ×2; 96374; 99285; C1769 ×2; C1874; C1887; C9600; G0378 ×4; 36415; 36416; 92928; 93010; 99152; J1644; J1940; J2250; J3010; J7050; Q9967

== ENCOUNTER 2020-09-20 19:07 | Observation (INO) | payer MEDICARE ==
[~2020-09-20 19:07] MED LIST: Iopamidol-370 76% 500 ML 1 ML ONE
[2020-09-20] MEDS ORDERED: Aspirin Chewable 81 MG TAB ONE (19:33)
[2020-09-20] MEDS ORDERED: Nitroglycerin 2% Ointment 1 INCH/1 GM Packet ONE (19:33)
[2020-09-20 20:06] LABS: #Eosinphils 0.3 thou/uL (0.0-0.7); #Lymphocytes 1.1 thou/uL (1.20-3.40); #Monocytes 0.6 thou/uL (0.11-0.59); #Neutrophils 2.8 thou/uL (1.40-6.50); %Basophils 0.6 % (0.0-1.0); %Eosinophils 6.4 % (0.0-10.0); %Lymphocytes 22.9 % (21.0-51.0); %Monocytes 12.8 % (0.0-10.0); %Neutrophils 57.4 % (42.0-75.0); Hemoglobin 12.5 g/dL (14.0-18.0); Mean Corpuscular HGB CONC 33.6 g/dL (32.0-36.0); Mean Corpuscular Hemoglobin 30.6 pg (27.0-31.0); Mean Platelet Volume 7.4 fL (7.4-10.4); Platelet Count 169 thou/uL (130-400); RBC Distribution Width 11.5 % (11.5-14.5); Red Blood Cell (RBC) Count 4.09 mill/uL (4.70-6.10); White Blood Cell (WBC) Count 4.8 thou/uL (4.8-10.8)
--- NOTE | 2020-09-20 20:06 | RAD ---
Exam: Chest one view HISTORY:Chest pain. Comparison: 06/20/2019 FINDINGS: Cardiac silhouette:Mild enlarged cardiac silhouette Aorta: Unremarkable Pulmonary vessels: Normal Costophrenic angles: Clear LUNGS: No masses or consolidation. Pneumothorax: None Osseous abnormalities: None IMPRESSION: No acute cardiopulmonary process.
[2020-09-20 20:19] LABS: ALT (SGPT) 24 U/L (8-55); AST (SGOT) 28 U/L (5-34); Albumin 4.1 g/dL (3.4-4.8); Alkaline Phosphatase 67 U/L (40-110); Anion Gap 15 mmol/L (10-20); BUN (Urea Nitrogen) 26 mg/dL (8.4-25.7); Bilirubin, Total 0.4 mg/dL (0.2-1.2); CK (CPK) 196 U/L (30-200); Calc. Creatinine Clearance 0 mL/min (70-130); Carbon Dioxide 28 mmol/L (23-31); Chloride 101 mmol/L (98-107); Globulin 3.7 g/dL (2.4-3.5); Glucose 162 mg/dL (80-115); Lipase 39 U/L (8-78); Potassium 4.7 mmol/L (3.5-5.1); Protein, Total 7.8 g/dL (5.8-8.1); Sodium 139 mmol/L (136-145)
[2020-09-20 20:41] LABS: CKMB 2.2 ng/mL (0-6.6)
--- NOTE | 2020-09-20 21:02 | CT ---
Exam: CT angiogram of the chest HISTORY: Evaluate for pulmonary artery embolus an. Elevated d-dimer. Chest pain. COMPARISON: 07/26/2016 TECHNIQUE: CT angiogram of the chest is performed in the axial plane. Three-dimensional reformatted i mages are submitted for interpretation FINDINGS: Mediastinum: No mass, lymphadenopathy or hematoma. HEART: Normal size. No significant pericardial fluid. There are coronary calcifications. Aorta: No aneurysm or dissection Upper solid abdominal viscera: No abnormality enhancement. Trachea and central bronchi: Patent Pleural spaces: No effusion Lung parenchyma: No masses or consolidation. Pneumothorax: None Osseous structures: No lytic or blastic lesions Pulmonary arteries: Adequate contrast opacification pulmonary arterial system to the level of segment al arteries. No filling defect to suggest pulmonary embolism IMPRESSION: 1. No evidence of pulmonary artery embolism to the level of the segmental arteries.
[2020-09-20 21:04] LABS: Bacteria/HPF 1+ HPF (None Seen); Bilirubin Negative (Negative); Blood, Urine Negative (Negative); Clarity Clear (Clear); Glucose, Urine (Dipstick) Normal (Negative); Ketone, Urine Negative (Negative); Leukocyte Negative Leu/uL (Negative); Nitrite Negative (Negative); Protein, Urine (Dipstick) 50 mg/dL (Neg-Trace); RBC/HPF 0-3 HPF (0-3); Specific Gravity, Urine 1.012 (1.002-1.036); Squamous Epithelial None Seen HPF (0-3); Urobilinogen Normal mg/dL (Less than 2)
--- NOTE | 2020-09-20 22:26 | PDOC.HHP ---
Hospitalist HPI Chest pain History of Present Illness: PCP: Dr. Kale Alejandro The patient is a 70-year-old male with a past medical history significant for CAD (2 stents), CHF, HTN, HLD, DM 2 and DEWEY (home CPAP) that presents to the emergency department for the above complaint. Patient reports acute onset of substernal chest pain radiating to his left chest at approximately 6:00 in the evening while sitting down at home. He describes the pain as pressure-like, dull in nature, exacerbated by nothing and relieved with sublingual nitro. He reports taking 2 doses of sublingual nitroglycerin with relief of symptoms. He says that he recently underwent a cardiac stress test with Dr. Allen, who is his sales systems engineer. He does not know the results of that test. He denies heart palpitations, lightheadedness. He endorses mild swelling to his bilateral lower extremities which is intermittent at times. He denies any shortness of breath, cough, hemoptysis. Denies any history of DVT/PE. No history of COPD/asthma. Denies fever or chills. No recent illness. Denies abdominal pain, nausea, vomiting, diarrhea. Denies dysuria and hematuria. ED Course: VITAL SIGNS WedSep 20, 2020 19:08 KERVIN Gupta, Suzie BP: 212/86, Pulse: 83, Resp: 20, Temp: 98.3 (Oral), Pain: 8, O2 sat: 94 on (Room Air), Time: 09/20/2020 19:08. EKG normal sinus rhythm, no ST elevations. Initial troponin 0.035, BNP 16.1, D-dimer 0.94 CTA chest negative for pulmonary embolism. BUN 26, creatinine 1.82 UA 1+ bacteria with WBCs Medications: sodium chloride 0.9 % intravenous 1000 mL IV Fluid Infusion Given 21:13 021 aspirin oral 325 mg Oral Given 19:50 09/20/2020 Nitro-Bid transdermal 1 inch Topical Given 19:50 09/20/2020 Allergies/Adverse Reactions: Allergy/AdvReac Type Severity Reaction Status Date / Time No Known Allergies Allergy Verified 10/27/19 13:09 Home Medications: Medication Instructions Recorded Confirmed Type Carvedilol [Coreg] 25 mg PO BID 12/07/13 06/20/19 History Gabapentin [Neurontin] 300 mg PO BID 12/07/13 06/20/19 History Isosorbide Mononitrate [Isosorbide 30 mg PO DAILY 12/07/13 06/20/19 History Mononitrate ER] Nitroglycerin [Nitrostat] 0.4 mg SL Q5MIN PRN 12/07/13 06/20/19 History Simvastatin [Zocor] 20 mg PO HS 12/07/13 06/20/19 History Cyanocobalamin (Vitamin B-12) 1,000 mcg PO DAILY 07/25/16 06/20/19 History [Vitamin B-12] Aspirin [Aspir-Low] 81 mg PO DAILY 06/20/19 06/20/19 History Multivit-Min/FA/Lycopen/Lutein 1 each PO DAILY 06/20/19 06/20/19 History [Centrum Silver Tablet] Clopidogrel Bisulfate [Plavix] 75 mg PO DAILY #30 tab 06/22/19 Rx Lisinopril [Zestril] 10 mg PO BID #30 tab 06/22/19 Rx hydrALAZINE HCl [Hydralazine HCl] 50 mg PO TID #30 tablet 06/22/19 Rx Past History: PMHx: Hypertension, HLD, DM 2, CAD x2, CHF, DEWEY PSHx: CAD x2 (last stent approximately 2 years ago) FHx: Contributory for cardiac disease Social: Patient does not smoke, drink alcohol, or use illicit drugs. He is retired. He ambulates independently. Hospitalist HPI ROS All other systems reviewed; all pertinent +/- noted in HPI/Subj Hospitalist Exam General Appearance: NAD, awake alert. negative: ill appearing Eye: anicteric sclera ENT: normocephalic atraumatic, moist mucosa Neck: supple, no carotid bruit Heart: RRR, no murmur, no gallops, no rubs, normal peripheral pulses Respiratory: CTAB, no wheezes, no rales, no ronchi, normal chest expansion, no tachypnea Gastrointestinal: soft, non-tender, non-distended, normal bowel sounds, no guarding, no rigidity Extremities: no cyanosis, no edema Skin: no rashes Neurological: no focal deficits Musculoskeletal: normal tone, normal strength Psychiatric: normal affect, A&O x 3 Hospitalist Results Result Diagrams: 09/20/20 19:47 09/20/20 19:47 Lab results: Laboratory Last Values WBC 4.8 thou/uL (4.8-10.8) 09/20/20 19:47 RBC 4.09 mill/uL (4.70-6.10) L 09/20/20 19:47 Hgb 12.5 g/dL (14.0-18.0) L 09/20/20 19:47 Hct 37.3 % (42.0-52.0) L 09/20/20 19:47 MCV 91.0 fL (78.0-98.0) 09/20/20 19:47 MCH 30.6 pg (27.0-31.0) 09/20/20 19:47 MCHC 33.6 g/dL (32.0-36.0) 09/20/20 19:47 RDW 11.5 % (11.5-14.5) 09/20/20 19:47 Plt Count 169 thou/uL (130-400) 09/20/20 19:47 MPV 7.4 fL (7.4-10.4) 09/20/20 19:47 Neutrophils % 57.4 % (42.0-75.0) 09/20/20 19:47 Lymphocytes % 22.9 % (21.0-51.0) 09/20/20 19:47 Monocytes % 12.8 % (0.0-10.0) H 09/20/20 19:47 Eosinophils % 6.4 % (0.0-10.0) 09/20/20 19:47 Basophils % 0.6 % (0.0-1.0) 09/20/20 19:47 Neutrophils # 2.8 thou/uL (1.40-6.50) 09/20/20 19:47 Lymphocytes # 1.1 thou/uL (1.20-3.40) L 09/20/20 19:47 Monocytes # 0.6 thou/uL (0.11-0.59) H 09/20/20 19:47 Eosinophils # 0.3 thou/uL (0.0-0.7) 09/20/20 19:47 Basophils # 0.0 thou/uL (0.0-0.2) 09/20/20 19:47 D-Dimer 0.94 *mcg/mL (0.27-0.43) H 09/20/20 19:47 Sodium 139 mmol/L (136-145) 09/20/20 19:47 Potassium 4.7 mmol/L (3.5-5.1) 09/20/20 19:47 Chloride 101 mmol/L (98-107) 09/20/20 19:47 Carbon Dioxide 28 mmol/L (23-31) 09/20/20 19:47 Anion Gap 15 mmol/L (10-20) 09/20/20 19:47 BUN 26 mg/dL (8.4-25.7) H 09/20/20 19:47 Creatinine 1.82 mg/dL (0.7-1.3) H 09/20/20 19:47 Estimated GFR (MDRD) 45 09/20/20 19:47 Glucose 162 mg/dL (80-115) H 09/20/20 19:47 Calcium 9.0 mg/dL (7.8-10.44) 09/20/20 19:47 Total Bilirubin 0.4 mg/dL (0.2-1.2) 09/20/20 19:47 AST 28 U/L (5-34) 09/20/20 19:47 ALT 24 U/L (8-55) 09/20/20 19:47 Alkaline Phosphatase 67 U/L (40-110) 09/20/20 19:47 Creatine Kinase 196 U/L (30-200) 09/20/20 19:47 CK-MB (CK-2) 2.2 ng/mL (0-6.6) 09/20/20 19:47 Troponin I 0.035 ng/mL (< 0.028) H 09/20/20 19:47 B-Natriuretic Peptide 16.1 pg/mL (0-100) 09/20/20 19:47 Serum Total Protein 7.8 g/dL (5.8-8.1) 09/20/20 19:47 Albumin 4.1 g/dL (3.4-4.8) 09/20/20 19:47 Globulin 3.7 g/dL (2.4-3.5) H 09/20/20 19:47 Albumin/Globulin Ratio 1.1 g/dL (1.2-2.2) L 09/20/20 19:47 Lipase 39 U/L (8-78) 09/20/20 19:47 Urine Color Light-Yellow (Yellow) 09/20/20 20:43 Urine Clarity Clear (Clear) 09/20/20 20:43 Urine pH 7.0 (5.0-9.0) 09/20/20 20:43 Ur Specific [place] 1.012 (1.002-1.036) 09/20/20 20:43 Urine Protein 50 mg/dL (Neg-Trace) A 09/20/20 20:43 Urine Glucose (UA) Normal mg/dL (Negative) 09/20/20 20:43 Urine Ketones Negative mg/dL (Negative) 09/20/20 20:43 Urine Blood Negative (Negative) 09/20/20 20:43 Urine Nitrite Negative (Negative) 09/20/20 20:43 Urine Bilirubin Negative (Negative) 09/20/20 20:43 Urine Urobilinogen Normal mg/dL (Less than 2) 09/20/20 20:43 Ur Leukocyte Esterase Negative Pamela/uL (Negative) 09/20/20 20:43 Urine RBC 0-3 HPF (0-3) 09/20/20 20:43 Urine WBC 4-6 HPF (0-3) A 09/20/20 20:43 Ur Squamous Epith Cells None Seen HPF (0-3) 09/20/20 20:43 Urine Bacteria 1+ HPF (None Seen) A 09/20/20 20:43 EKG Status: report reviewed by me Additional Comments: normal sinus rhythm on the monitor with no ectopy. This rhythm heart rate 77 QTc 409 poor R wave progression anterior leads T wave flattening inferior leads Chest x-ray Status: report reviewed by me Additional Comments: IMPRESSION: No acute cardiopulmonary process. CT scan - chest Status: report reviewed by me Additional Comments: IMPRESSION: 1. No evidence of pulmonary artery embolism to the level of the segmental arteries. Hospitalist H&P A/P (1) Chest pain Code(s): R07.9 - CHEST PAIN, UNSPECIFIED Status: Acute (2) Elevated troponin Code(s): R77.8 - OTHER SPECIFIED ABNORMALITIES OF PLASMA PROTEINS Status: Ac maria luisa (3) Asymptomatic bacteriuria Code(s): R82.71 - BACTERIURIA Status: Acute (4) CAD (coronary artery disease) Code(s): I25.10 - ATHSCL HEART DISEASE OF [place] CORONARY ARTERY W/O ANG PCTRS Status: Chronic (5) DM2 (diabetes mellitus, type 2) Status: Chronic Qualifiers: Diabetes mellitus ferry terminal agent insulin use: unspecified ferry terminal agent insulin use status Diabetes mellitus complication status: with neurologic complications Diabetes mellitus complication detail: with unspecified neuropathy Qualified Code(s): E11.40 - Type 2 diabetes mellitus with diabetic neuropathy, unspecified (6) HTN (hypertension) Code(s): I10 - ESSENTIAL (PRIMARY) HYPERTENSION Status: Chronic (7) HLD (hyperlipidemia) Code(s): E78.5 - HYPERLIPIDEMIA, UNSPECIFIED Status: Chronic (8) DEWEY (obstructive sleep apnea) Code(s): G47.33 - OBSTRUCTIVE SLEEP APNEA (ADULT) (PEDIATRIC) Status: Chronic Plan: Patient with CAD presents for chest pain relieved with nitroglycerin. EKG no ST elevations, CTA chest negative pulmonary embolism. #Chest pain Heart score 8, MARICRUZ score 5 Recent cardiac stress test with Dr. Allen, unknown results. Trend troponins, check FLP, TSH, mag level Continue aspirin and Nitropaste. Restart home beta-darryn, statin. N.p.o. Consult cardiology. #Elevated troponin Story is concerning for ACS. Trend troponins. Plan as per above. #Asymptomatic bacteriuria UA 1+ bacteria, WBCs Send urine for culture. #CAD Stents x2 Takes aspirin and Plavix at home. Takes carvedilol, Imdur, hydralazine at home. Restart home medications. #DM2 Presented BG 162 Managed with lifestyle changes. Start moderate ISS Accu-Cheks AC at bedtime Check hemoglobin A1c #HTN Presented hypertensive. Restart home dose Coreg, Imdur and hydralazine. Monitor BP #HLD Get FLP Restart home statin. #DEWEY Chronic, compliant with home CPAP. RT to manage CPAP at night. SCDs for DVT prophylaxis. Pepcid for GI prophylaxis. CODE STATUS is full code. Discussed the case with attending physician, Dr. Barba, who agrees with plan of care.
[2020-09-20] MEDS ORDERED: Nitroglycerin 0.4 MG TAB (25 Tab Bottle) SL PRN (23:06)
[2020-09-20] MEDS ORDERED: Dextrose 50% Abboject 50 ML SYRINGE SLOW IVP PRN (23:08)
[2020-09-20] MEDS ORDERED: HumaLOG 300 UNITS/3 ML VIAL SC PRN ×2 (23:08)
[2020-09-20] MEDS ORDERED: Dextrose 5% in Water 1,000 ML IV PRN (23:08)
[2020-09-20] MEDS ORDERED: Ondansetron ODT 4 MG TAB PO PRN (23:14)
[2020-09-20] MEDS ORDERED: Acetaminophen 325 MG TAB PO PRN (23:14)
[2020-09-20 23:26] LABS: Troponin I 0.026 ng/mL (< 0.028)
[2020-09-20] MEDS ORDERED: Sodium Chloride 0.9% 1,000 ML IV SCH (23:59)
[2020-09-21 01:16] VITALS: BMI 41.1
[2020-09-21 01:54] LABS: #Eosinphils 0.3 thou/uL (0.0-0.7); #Lymphocytes 1.3 thou/uL (1.20-3.40); #Monocytes 0.7 thou/uL (0.11-0.59); #Neutrophils 2.6 thou/uL (1.40-6.50); %Basophils 0.5 % (0.0-1.0); %Eosinophils 5.3 % (0.0-10.0); %Lymphocytes 26.5 % (21.0-51.0); %Monocytes 14.3 % (0.0-10.0); %Neutrophils 53.4 % (42.0-75.0); Mean Corpuscular HGB CONC 34.7 g/dL (32.0-36.0); Mean Corpuscular Hemoglobin 31.7 pg (27.0-31.0); Mean Corpuscular Volume 91.3 fL (78.0-98.0); Mean Platelet Volume 6.8 fL (7.4-10.4); Platelet Count 138 thou/uL (130-400); RBC Distribution Width 11.5 % (11.5-14.5); Red Blood Cell (RBC) Count 3.78 mill/uL (4.70-6.10); White Blood Cell (WBC) Count 4.8 thou/uL (4.8-10.8)
[2020-09-21 02:17] LABS: Hemoglobin A1c 5.9 % (4.0-6.0)
[2020-09-21 02:18] LABS: Troponin I 0.034 ng/mL (< 0.028)
[2020-09-21 02:21] LABS: Anion Gap 13 mmol/L (10-20); BUN (Urea Nitrogen) 27 mg/dL (8.4-25.7); Calc. Creatinine Clearance 77 mL/min (70-130); Calcium 8.5 mg/dL (7.8-10.44); Carbon Dioxide 27 mmol/L (23-31); Cardiac Risk 3.2 (Less than 4.5); Chloride 104 mmol/L (98-107); Cholesterol 119 mg/dl (< 200 Desired); Glucose 125 mg/dL (80-115); HDL Cholesterol 37 mg/dL (>60 Neg Risk); LDL Cholesterol, Calculated 50 mg/dL; Potassium 4.3 mmol/L (3.5-5.1); Sodium 140 mmol/L (136-145); Triglycerides 161 mg/dL (Less than 150)
[2020-09-21] MEDS: Nitroglycerin 2% Ointment 1 INCH/1 GM Packet TOP SCH ×3 (04:55→21:17)
[2020-09-21 05:50] LABS: SARS-CoV-2 PCR by NAA Not Detected (NotDetected)
[2020-09-21] MEDS ORDERED: hydrALAZINE 20 MG/ML VIAL SLOW IVP PRN (06:01)
[2020-09-21] MEDS ORDERED: Labetalol HCl 100 MG/20 ML VIAL SLOW IVP PRN (06:01)
[2020-09-21] MEDS ORDERED: Bisacodyl 5 MG TAB PO PRN (08:07)
[2020-09-21] MEDS ORDERED: Calcium Carbonate 500 MG ChewTAB PO PRN (08:07)
[2020-09-21] MEDS ORDERED: Zolpidem Tartrate 5 MG TAB PO PRN (08:07)
[2020-09-21] MEDS ORDERED: Ondansetron PF 4 MG/2 ML Vial IVP PRN (08:07)
[2020-09-21] MEDS ORDERED: Senokot S 8.6-50 MG TAB PO PRN (08:07)
[2020-09-21] MEDS ORDERED: Loperamide HCl 2 MG CAP PO PRN (08:07)
[2020-09-21] MEDS ORDERED: Cepastat Lozenges 1 LOZ PO PRN (08:07)
[2020-09-21] MEDS ORDERED: HYDROcodone/Acetaminophen 5/325 mg Tablet PO PRN (08:07)
[2020-09-21] MEDS ORDERED: Loratadine 10 MG TAB PO PRN (08:07)
[2020-09-21] MEDS ORDERED: Sodium Chloride 0.65% Nasal 44 ML BOT EA NARE PRN (08:07)
[2020-09-21] MEDS: Aspirin 81 mg Enteric Coated Tablet PO SCH (08:44)
[2020-09-21] MEDS: Cyanocobalamin (Vitamin B-12) 1,000 MCG TAB PO SCH (08:45)
[2020-09-21] MEDS: Cholecalciferol 1,000 UNITS (25 MCG) TAB PO SCH (08:45)
[2020-09-21] MEDS: Gabapentin 300 MG CAP PO SCH ×2 (08:45→21:17)
[2020-09-21] MEDS: hydrALAZINE 25 MG TAB PO SCH ×3 (08:46→21:13)
[2020-09-21] MEDS: Clopidogrel Bisulfate 75 MG TAB PO SCH (08:47)
[2020-09-21] MEDS ORDERED: Famotidine 20 MG TAB PO SCH (09:00)
[2020-09-21] MEDS ORDERED: Non-Formulary Item 1 EACH (Cholecalciferol (Vitamin D3) [Vitamin D3] 5,000 UNITS Capsule) PO SCH (09:00)
[2020-09-21] MEDS ORDERED: Aspirin Chewable 81 MG TAB PO SCH (09:00)
[2020-09-21] MEDS: Carvedilol 25 MG TAB PO SCH ×2 (09:45→16:23)
--- NOTE | 2020-09-21 11:49 | PDOC.HOSPP ---
- Subjective Encounter Date: 09/21/20 Encounter Time: 10:20 Subjective: Patient seen and examined bedside today, no overnight event, no new complaint, - Objective Vital Signs & Weight: Vital Signs (12 hours) Temp Pulse Resp BP BP BP Pulse Ox 09/21/20 10:34 98.6 F 65 16 104/57 L 94 L 09/21/20 08:46 59 L 09/21/20 07:25 98.8 F 59 L 16 197/88 H 94 L 09/21/20 06:26 69 209/90 H 09/21/20 03:46 98.8 F 66 20 183/81 H 94 L Weight Weight 295 lb 3.2 oz I&O: 09/20/20 09/21/20 09/22/20 06:59 06:59 06:59 Output Total 680 550 Balance -680 -550 Result Diagrams: 09/21/20 01:47 09/21/20 01:47 Additional Labs: Accuchecks 09/21/20 09/21/20 10:22 06:03 POC Glucose 109 H 103 H Radiology Reviewed by me: Yes EKG Reviewed by me: Yes Hospitalist ROS - Review of Systems ENT: denies: ear pain, ear discharge, nose pain, nose discharge, nose congestion, mouth pain, mouth swelling, throat pain, throat swelling, other Respiratory: denies: cough, dry, shortness of breath, hemoptysis, SOB with excer tion, pleuritic pain, sputum, wheezing, other Cardiovascular: denies: chest pain, palpitations, orthopnea, paroxysmal noc. dyspnea, edema, light headedness, other Gastrointestinal: denies: nausea, vomiting, abdominal pain, diarrhea, constipation, melena, hematochezia, other Genitourinary: denies: dysuria, frequency, incontinence, hematuria, retention, other Musculoskeletal: denies: neck pain, shoulder pain, arm pain, back pain, hand pain, leg pain, foot pain, other - Medication Medications: Active Medications Generic Name Dose Route Start Last Admin Trade Name Freq PRN Reason Stop Dose Admin Aspirin 81 mg 09/21/20 09:00 09/21/20 08:44 Aspirin 81 Mg Enteric Coated Tablet PO 81 mg DAILY WILLOW Administration Carvedilol 25 mg 09/21/20 08:00 09/21/20 09:45 Carvedilol 25 Mg Tab PO 25 mg BID-WM WILLOW Administration Cholecalciferol 5,000 units 09/21/20 09:00 09/21/20 08:45 Cholecalciferol 1,000 Units (25 Mcg) Tab PO 5,000 units DAILY WILLOW Administration Clopidogrel Bisulfate 75 mg 09/21/20 09:00 09/21/20 08:47 Clopidogrel Bisulfate 75 Mg Tab PO 75 mg DAILY WILLOW Administration Cyanocobalamin 1,000 mcg 09/21/20 09:00 09/21/20 08:45 Cyanocobalamin (Vitamin B-12) 1,000 Mcg Tab PO 1,000 mcg DAILY WILLOW Administration Gabapentin 300 mg 09/21/20 09:00 09/21/20 08:45 Gabapentin 300 Mg Cap PO 300 mg BID WILLOW Administration Hydralazine HCl 100 mg 09/21/20 09:00 09/21/20 08:46 Hydralazine 25 Mg Tab PO 100 mg TID WILLOW Administration Sodium Chloride 1,000 mls @ 75 mls/hr 09/20/20 23:59 09/21/20 02:31 Normal Saline 0.9% IV 09/21/20 13:18 1,000 mls .[id number] WILLOW Administration Isosorbide Mononitrate 30 mg 09/21/20 09:00 09/21/20 08:45 Isosorbide Mononitrate Er 30 Mg Tab PO 30 mg DAILY WILLOW Administration Labetalol HCl 20 mg 09/21/20 06:01 09/21/20 06:26 Labetalol Hcl 100 Mg/20 Ml Vial SLOW IVP 20 mg Q4H PRN Administration SBP > 160 use first Nitroglycerin 0.5 inch 09/21/20 04:00 09/21/20 04:55 Nitroglycerin 2% Ointment 1 Inch/1 Gm Packet TOP Not Given 0400,1200,2000 [facility] Hospitalist Exam Vitals: Vital Signs (12 hours) Temp Pulse Resp BP BP BP Pulse Ox 09/21/20 10:34 98.6 F 65 16 104/57 L 94 L 09/21/20 08:46 59 L 09/21/20 07:25 98.8 F 59 L 16 197/88 H 94 L 09/21/20 06:26 69 209/90 H 09/21/20 03:46 98.8 F 66 20 183/81 H 94 L Weight Weight 295 lb 3.2 oz General Appearance: NAD, awake alert Eye: PERRL, anicteric sclera ENT: normocephalic atraumatic, no oropharyngeal lesions Neck: supple, symmetric, no JVD, no thyromegaly Heart: RRR, no murmur, no gallops, no rubs Respiratory: no wheezes, no rales, no ronchi Gastrointestinal: soft, non-tender, non-distended, normal bowel sounds Gastrointestinal - other findings: Obesity noted Extremities: no clubbing, no edema Skin: normal turgor, no lesions Neurological: no focal deficits Musculoskeletal: normal tone, normal strength Psychiatric: normal affect, normal behavior Hosp A/P (1) Chest pain Code(s): R07.9 - CHEST PAIN, UNSPECIFIED Status: Acute (2) Elevated troponin Code(s): R77.8 - OTHER SPECIFIED ABNORMALITIES OF PLASMA PROTEINS Status: Acute (3) CAD (coronary artery disease) Code(s): I25.10 - ATHSCL HEART DISEASE OF [place] CORONARY ARTERY W/O ANG PCTRS Status: Chronic (4) DM2 (diabetes mellitus, type 2) Status: Chronic Qualifiers: Diabetes mellitus house supervisor insulin use: unspecified house supervisor insulin use status Diabetes mellitus complication status: with neurologic complications Diabetes mellitus complication detail: with unspecified neuropathy Qualified Code(s): E11.40 - Type 2 diabetes mellitus with diabetic neuropathy, unspecified (5) HLD (hyperlipidemia) Code(s): E78.5 - HYPERLIPIDEMIA, UNSPECIFIED Status: Chronic (6) HTN (hypertension) Code(s): I10 - ESSENTIAL (PRIMARY) HYPERTENSION Status: Chronic (7) DEWEY (obstructive sleep apnea) Code(s): G47.33 - OBSTRUCTIVE SLEEP APNEA (ADULT) (PEDIATRIC) Status: Chronic (8) CKD (chronic kidney disease), stage III Code(s): N18.30 - CHRONIC KIDNEY DISEASE, STAGE 3 UNSPECIFIED Status: Chronic Qualifiers: Chronic kidney disease stage 3 subtype: stage 3a (GFR 45-59) Qualified Code(s): N18.31 - Chronic kidney disease, stage 3a - Plan old records reviewed/req Discontinue IV fluid Cardiology evaluation pending Discharge decision pending cardiology recommendation Medication reviewed and continued per symptomatic and supportive care
--- NOTE | 2020-09-21 11:53 | PDOC.DS.DS ---
Provider Date of Admission: 09/20/20 21:57 Admitting Provider: Kale Barba MD Consultations: Cardiology Primary Care Physician: Kale Alejandro MD Course Hospital Course: 70-year-old male with a past medical history significant for CAD (2 stents), CHF, HTN, HLD, DM 2 and DEWEY (home CPAP) that presents to the emergency department for the above complaint. Patient reports acute onset of substernal chest pain radiating to his left chest at approximately 6:00 in the evening while sitting down at home. He describes the pain as pressure-like, dull in nature, exacerbated by nothing and relieved with sublingual nitro. He reports taking 2 doses of sublingual nitroglycerin with relief of symptoms. 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 He does not know the results of that test. He denies heart palpitations, lightheadedness. He endorses mild swelling to his bilateral lower extremities which is intermittent at times. He denies any shortness of breath, cough, hemoptysis. Denies any history of DVT/PE. No history of COPD/asthma. Denies fever or chills. No recent illness. Denies abdominal pain, nausea, vomiting, diarrhea. Denies dysuria and hematuria. On admission patient had chest x-ray which showed no acute cardiopulmonary process, patient also had a CT angiography which was negative for pulmonary embolism, patient was observed in the hospital, he was given gentle IV fluid after CT angiography, patient had a indeterminate troponin, cardiology consulted, telemetry was unremarkable, patient was asymptomatic while in hospital, Cardiology saw this patient and they recommended either inpatient or outpatient cardiac catheterization given his abnormal stress test as an outpatient basis. His blood pressure was elevated so we increased Imdur and we added amlodipine, all new medication prescription given. Resuscitation Status: 09/20/20 23:14 Resuscitation Status Routine Co-Sign Provider: Resuscitation Status: FULL: Full Resuscitation Discussed with: patient Additional comments: spouse, at [phone] Lab Results: 09/21/20 01:47 09/21/20 01:47 Abnormal Lab Results - Last 48 hrs 09/20/20 19:47: RBC 4.09 L, Hgb 12.5 L, Hct 37.3 L, Monocytes % 12.8 H, Lymphocytes # 1.1 L, Monocytes # 0.6 H 09/20/20 19:47: Troponin I 0.035 H 09/20/20 19:47: BUN 26 H, Creatinine 1.82 H, Globulin 3.7 H, Albumin/Globulin Ratio 1.1 L 09/20/20 19:47: D-Dimer 0.94 H 09/20/20 20:43: Urine Protein 50 A, Urine WBC 4-6 A, Urine Bacteria 1+ A 09/21/20 01:47: Troponin I 0.034 H 09/21/20 01:47: BUN 27 H, Creatinine 1.69 H, Triglycerides 161 H 09/21/20 01:47: RBC 3.78 L, Hgb 12.0 L, Hct 34.5 L, MCH 31.7 H, MPV 6.8 L, Monocytes % 14.3 H, Monocytes # 0.7 H Vitals: Vital Signs (12 hours) Temp Pulse Resp BP BP BP Pulse Ox 09/21/20 10:34 98.6 F 65 16 104/57 L 94 L 09/21/20 08:46 59 L 09/21/20 07:25 98.8 F 59 L 16 197/88 H 94 L 09/21/20 06:26 69 209/90 H 09/21/20 03:46 98.8 F 66 20 183/81 H 94 L Weight Weight 295 lb 3.2 oz Physical Exam: The patient was seen and examined on the day of discharge. General Appearance: NAD, awake alert Eye: PERRL, anicteric sclera ENT: normocephalic atraumatic, no oropharyngeal lesions Neck: supple, symmetric, no JVD, no thyromegaly Respiratory: no wheezes, no rales, no ronchi Cardiovascular: RRR, no murmur, no gallops, no rubs Gastrointestinal: soft, non-tender, non-distended, normal bowel sounds Extremities: no cyanosis, no clubbing, no edema Skin: normal turgor, no lesions Neurological: no focal deficits Musculoskeletal: normal tone, normal strength PSYCH: normal affect, normal behavior, A&O x 3 Problem (1) Chest pain Code(s): R07.9 - CHEST PAIN, UNSPECIFIED Status: Acute (2) Elevated troponin Code(s): R77.8 - OTHER SPECIFIED ABNORMALITIES OF PLASMA PROTEINS Status: Acute (3) CAD (coronary artery disease) Code(s): I25.10 - ATHSCL HEART DISEASE OF [place] CORONARY ARTERY W/O ANG PCTRS Status: Chronic (4) DM2 (diabetes mellitus, type 2) Status: Chronic Qualifiers: Diabetes mellitus emt intermediate insulin use: unspecified usp insulin use status Diabetes mellitus complication status: with neurologic complications Diabetes mellitus complication detail: with unspecified neuropathy Qualified Code(s): E11.40 - Type 2 diabetes mellitus with diabetic neuropathy, unspecified (5) HLD (hyperlipidemia) Code(s): E78.5 - HYPERLIPIDEMIA, UNSPECIFIED Status: Chronic (6) HTN (hypertension) Code(s): I10 - ESSENTIAL (PRIMARY) HYPERTENSION Status: Chronic (7) DEWEY (obstructive sleep apnea) Code(s): G47.33 - OBSTRUCTIVE SLEEP APNEA (ADULT) (PEDIATRIC) Status: Chronic (8) CKD (chronic kidney disease), stage III Code(s): N18.30 - CHRONIC KIDNEY DISEASE, STAGE 3 UNSPECIFIED Status: Chronic Qualifiers: Chronic kidney disease stage 3 subtype: stage 3a (GFR 45-59) Qualified Code(s): N18.31 - Chronic kidney disease, stage 3a Plan Home Medications: Medication Instructions Recorded Confirmed Type Carvedilol [Coreg] 25 mg PO BID 12/07/13 09/21/20 History Gabapentin [Neurontin] 300 mg PO BID 12/07/13 09/21/20 History Isosorbide Mononitrate [Isosorbide 30 mg PO DAILY 12/07/13 09/21/20 History Mononitrate ER] Nitroglycerin [Nitrostat] 0.4 mg SL Q5MIN PRN 12/07/13 09/21/20 History Simvastatin [Zocor] 20 mg PO HS 12/07/13 09/21/20 History Cyanocobalamin (Vitamin B-12) 1,000 mcg PO DAILY 07/25/16 09/21/20 History [Vitamin B-12] Aspirin [Aspir-Low] 81 mg PO DAILY 06/20/19 09/21/20 History Clopidogrel Bisulfate [Plavix] 75 mg PO DAILY #30 tab 06/22/19 09/21/20 Rx hydrALAZINE HCl [Hydralazine HCl] 50 mg PO TID #30 tablet 06/22/19 09/21/20 Rx Cholecalciferol (Vitamin D3) 5,000 unit PO DAILY 09/21/20 09/21/20 History [Vitamin D3] Allergies: No Known Allergies Allergy (Verified 09/21/20 01:20) per pt Activity:: Activity as Tolerated Nourishment:: Diabetic Diet Therapies:: Not Applicable Equipment/Supplies:: Not Applicable IV Therapy:: Not Applicable Referrals: Kale Alejandro MD [Primary Care Provider] - Disposition: HOME Quality CORE MEASURES:: N/A
--- NOTE | 2020-09-21 15:43 | CON ---
DATE OF CONSULTATION: 09/21/2020 PRIMARY KNOWLEDGE ARCHITECT: Dr. Allen. INDICATION FOR CONSULTATION: A 70-year-old patient with history of known coronary artery disease, hypertension, diabetes type 2, hyperlipidemia, status post angioplasty and stent placement to the left circumflex, most recently in June of 2019 to the distal left circumflex after the takeoff of the second obtuse marginal branch. HISTORY OF PRESENT ILLNESS: This is a very pleasant 70-year-old gentleman, with the above noted coronary artery disease history as well as 2 stent placements and hypertension, hypercholesterolemia, and dyslipidemia. After eating dinner last night, developed chest pain. He took nitroglycerin. The pain then resolved after about 15 minutes. He rates on a scale of 3 to 4/10, which he said was mild chest discomfort. The pain then returned. He took another sublingual nitroglycerin and had more relief of his symptoms, but then he said that he had recently undergone stress testing in the office and this did show evidence of anterior wall ischemia. His echocardiogram in August of this year showed a normal left ventricular systolic function of 55% to 60%. He did have grade 1 diastolic dysfunction by echocardiogram. He also had some moderate aortic valve sclerosis, but no evidence of significant stenosis with some mild mitral and tricuspid valve regurgitation. At this time, he is pain free. His enzymes are negative for myocardial infarction. EKG is also unremarkable and he is comfortable and alert and cooperative at this time. He had no other associated symptoms such as diaphoresis, shortness of breath, radiation of the pain. PAST MEDICAL HISTORY: Significant for coronary artery disease, hypertension, dyslipidemia. He has had cardiac catheterization in 2009. He had a stent placement with a drug-eluting stent in July of 2010. He also had a drug-eluting stent to the left circumflex again in 2018. He has a history of diastolic heart failure, obstructive sleep apnea, , chronic kidney disease type 3, has some degree of left ventricular hypertrophy. SOCIAL HISTORY: He does not smoke. He lives at home with his . He is retired. REVIEW OF SYSTEMS: A 12-point review of systems unremarkable except what is noted in the history of present illness. MEDICATIONS: Prior to admission included, 1. Isosorbide mononitrate 30 mg a day. 2. Coreg 25 mg b.i.d. 3. Simvastatin 20 mg a day. 4. Plavix 75 mg a day. 5. Hydralazine 100 mg t.i.d. 6. Aspirin 81 mg a day. 7. Nitroglycerin sublingual as needed. 8. Vitamin D3. 9. Vitamin B12. 10. Centrum Silver vitamins. 11. Gabapentin 300 mg b.i.d. ALLERGIES: THERE ARE NO KNOWN DRUG ALLERGIES. PHYSICAL EXAMINATION: GENERAL: Reveals a very pleasant, well-developed, obese gentleman, who weighs almost 300 pounds. Blood pressure at this time is 197/88, heart rate is 60 and regular, respiratory rate 16. He is afebrile. HEENT: Shows head to be normocephalic and atraumatic. Carotid pulses are present. There were no bruits noted. CHEST: Clear to auscultation without rales, rhonchi, or wheezing. CARDIOVASCULAR: Reveals a regular rate and rhythm with normal S1, S2. There is no S3 or S4. There were no significant murmurs, heaves, thrills, bruits, or rubs noted. ABDOMEN: Shows morbid obesity. I cannot palpate any masses or tenderness. EXTREMITIES: Show no clubbing or cyanosis. He had minimal lower extremity edema. Pedal pulses are difficult to palpate. Popliteal pulses and femoral pulses are present. NEUROLOGIC: The patient appears to be fully intact without any gross focal motor deficits. SKIN: Warm and dry. LABORATORY DATA: Shows a WBC of 4.8, hemoglobin was 12, platelet count is 138,000. BUN was 27 with a creatinine of 1.69, earlier on admission was 1.82. Blood sugar was 125, potassium was 4.3, and sodium was 140. Troponin I on admission was 0.035, decreased down to 0.026 and is now stabilized at 0.034. LDL was 50. He does have a urinary tract infection with 1+ bacteria. Chest x-ray also was unremarkable. He had a CT scan to rule out evidence of a pulmonary embolus, none was found. IMPRESSION: 1. Chest pain in a gentleman who already has known coronary artery disease, who had a recent abnormal stress test with anterior wall ischemia, which was performed in Dr. Allen' office. We will continue to monitor the patient. We will try to keep him stable. He will need to undergo repeat cardiac catheterization either as an outpatient or an inpatient. If he does very well over the weekend, he could be discharged home and to undergo the procedure as an outpatient. Since there are no EKG changes and enzymes are negative, we will need to control the blood pressure better. 2. Hypertension. We will need to adjust his medications to lower this blood pressure. He has renal insufficiency. I will need to find medications to lower the blood pressure. We will start him on amlodipine for better blood pressure. 3. Chronic kidney disease. He is followed by Dr. Bello. We will need to hydrate the patient if we anticipate doing an inpatient cardiac catheterization to decrease the risk of further renal insufficiency with contrast from the cardiac catheterization. 4. Hypercholesterolemia. The cholesterol is under good control. We will continue his present medications. 5. Type 2 diabetes. This will be dealt with by the primary care service. His blood sugar actually is under reasonable control at this time. 6. Diastolic dysfunction. We will continue his medications with beta blockers. Job ID: [id number]
[2020-09-21] MEDS ORDERED: Atorvastatin Calcium 10 MG TAB PO SCH (21:00)
[2020-09-22] MEDS: Nitroglycerin 2% Ointment 1 INCH/1 GM Packet TOP SCH (04:00)
[2020-09-22 08:24] VITALS: TEMP 98.7
[2020-09-22] MEDS ORDERED: Amlodipine 10 MG TAB PO SCH (09:00)
[2020-09-22] MEDS: hydrALAZINE 25 MG TAB PO SCH ×2 (09:05→15:32)
[2020-09-22] MEDS: Cholecalciferol 1,000 UNITS (25 MCG) TAB PO SCH (09:06)
[2020-09-22] MEDS: Carvedilol 25 MG TAB PO SCH (09:07)
[2020-09-22] MEDS: Aspirin 81 mg Enteric Coated Tablet PO SCH (09:07)
[2020-09-22] MEDS: Clopidogrel Bisulfate 75 MG TAB PO SCH (09:07)
[2020-09-22] MEDS: Cyanocobalamin (Vitamin B-12) 1,000 MCG TAB PO SCH (09:07)
[2020-09-22 09:29] LABS: Troponin I 0.027 ng/mL (< 0.028)
[2020-09-22] MEDS: Gabapentin 300 MG CAP PO SCH (09:37)
--- NOTE | 2020-09-22 10:44 | PDOC.HOSPP ---
- Subjective Encounter Date: 09/22/20 Encounter Time: 10:00 Subjective: Patient does not have any chest pain, no overnight event, his blood pressure is elevated, - Objective Vital Signs & Weight: Vital Signs (12 hours) Temp Pulse Resp BP BP Pulse Ox 09/22/20 09:16 63 186/80 H 09/22/20 09:05 63 186/80 H 09/22/20 07:24 98.7 F 63 15 186/80 H 95 09/22/20 04:00 98.4 F 64 20 150/64 H 95 09/21/20 23:22 64 18 94 L 09/21/20 23:10 62 20 159/70 H Weight Weight 291 lb 12.8 oz I&O: 09/21/20 09/22/20 09/23/20 06:59 06:59 06:59 Intake Total 1440 Output Total 680 2750 Balance -023 -6753 Result Diagrams: 09/21/20 01:47 09/21/20 01:47 Additional Labs: Accuchecks 09/22/20 09/22/20 09/21/20 10:34 06:08 21:20 POC Glucose 139 H 93 111 H 09/21/20 17:02 POC Glucose 91 EKG Reviewed by me: Yes Hospitalist ROS - Review of Systems ENT: denies: ear pain, ear discharge, nose pain, nose discharge, nose congestion, mouth pain, mouth swelling, throat pain, throat swelling, other Respiratory: denies: cough, dry, shortness of breath, hemoptysis, SOB with excertion, pleuritic pain, sputum, wheezing, other Cardiovascular: denies: chest pain, palpitations, orthopnea, paroxysmal noc. dyspnea, edema, light headedness, other Gastrointestinal: denies: nausea, vomiting, abdominal pain, diarrhea, constipation, melena, hematochezia, other Genitourinary: denies: dysuria, frequency, incontinence, hematuria, retention, other Musculoskeletal: denies: neck pain, shoulder pain, arm pain, back pain, hand pain, leg pain, foot pain, other - Medication Medications: Active Medications Generic Name Dose Route Start Last Admin Trade Name Freq PRN Reason Stop Dose Admin Amlodipine Besylate 10 mg 09/22/20 09:00 09/22/20 09:16 Amlodipine 10 Mg Tab PO 10 mg DAILY WILLOW Administration Aspirin 81 mg 09/21/20 09:00 09/22/20 09:07 Aspirin 81 Mg Enteric Coated Tablet PO 81 mg DAILY WILLOW Administration Atorvastatin Calcium 10 mg 09/21/20 21:00 09/21/20 21:17 Atorvastatin Calcium 10 Mg Tab PO 10 mg HS WILLOW Administration Carvedilol 25 mg 09/21/20 08:00 09/22/20 09:07 Carvedilol 25 Mg Tab PO 25 mg BID-WM WILLOW Administration Cholecalciferol 5,000 units 09/21/20 09:00 09/22/20 09:06 Cholecalciferol 1,000 Units (25 Mcg) Tab PO 5,000 units DAILY WILLOW Administration Clopidogrel Bisulfate 75 mg 09/21/20 09:00 09/22/20 09:07 Clopidogrel Bisulfate 75 Mg Tab PO 75 mg DAILY WILLOW Administration Cyanocobalamin 1,000 mcg 09/21/20 09:00 09/22/20 09:07 Cyanocobalamin (Vitamin B-12) 1,000 Mcg Tab PO 1,000 mcg DAILY WILLOW Administration Gabapentin 300 mg 09/21/20 09:00 09/22/20 09:37 Gabapentin 300 Mg Cap PO 300 mg BID WILLOW Administration Hydralazine HCl 100 mg 09/21/20 09:00 09/22/20 09:05 Hydralazine 25 Mg Tab PO 100 mg TID WILLOW Administration Isosorbide Mononitrate 60 mg 09/22/20 09:00 09/22/20 09:16 Isosorbide Mononitrate Er 60 Mg Tab PO 60 mg DAILY WILLOW Administration Labetalol HCl 20 mg 09/21/20 06:01 09/21/20 06:26 Labetalol Hcl 100 Mg/20 Ml Vial SLOW IVP 20 mg Q4H PRN Administration SBP > 160 use first Hospitalist Exam Vitals: Vital Signs (12 hours) Temp Pulse Resp BP BP Pulse Ox 09/22/20 09:16 63 186/80 H 09/22/20 09:05 63 186/80 H 09/22/20 07:24 98.7 F 63 15 186/80 H 95 09/22/20 04:00 98.4 F 64 20 150/64 H 95 09/21/20 23:22 64 18 94 L 09/21/20 23:10 62 20 159/70 H Weight Weight 291 lb 12.8 oz General Appearance: NAD, awake alert Eye: PERRL, anicteric sclera ENT: normocephalic atraumatic, no oropharyngeal lesions Neck: supple, symmetric, no JVD, no thyromegaly Heart: RRR, no murmur, no gallops, no rubs Respiratory: no wheezes, no rales, no ronchi Gastrointestinal: soft, non-tender, non-distended, normal bowel sounds Extremities: no cyanosis, no clubbing, no edema Skin: normal turgor, no lesions Neurological: no focal deficits Musculoskeletal: normal tone, normal strength Psychiatric: normal affect, normal behavior Hosp A/P (1) Chest pain Code(s): R07.9 - CHEST PAIN, UNSPECIFIED Status: Acute (2) Elevated troponin Code(s): R77.8 - OTHER SPECIFIED ABNORMALITIES OF PLASMA PROTEINS Status: Acute (3) CAD (coronary artery disease) Code(s): I25.10 - ATHSCL HEART DISEASE OF [place] CORONARY ARTERY W/O ANG PCTRS Status: Chronic (4) DM2 (diabetes mellitus, type 2) Status: Chronic Qualifiers: Diabetes mellitus detention insulin use: unspecified detention insulin use status Diabetes mellitus complication status: with neurologic complications Diabetes mellitus complication detail: with unspecified neuropathy Qualified Code(s): E11.40 - Type 2 diabetes mellitus with diabetic neuropathy, unspecified (5) HLD (hyperlipidemia) Code(s): E78.5 - HYPERLIPIDEMIA, UNSPECIFIED Status: Chronic (6) HTN (hypertension) Code(s): I10 - ESSENTIAL (PRIMARY) HYPERTENSION Status: Chronic (7) DEWEY (obstructive sleep apnea) Code(s): G47.33 - OBSTRUCTIVE SLEEP APNEA (ADULT) (PEDIATRIC) Status: Chronic (8) CKD (chronic kidney disease), stage III Code(s): N18.30 - CHRONIC KIDNEY DISEASE, STAGE 3 UNSPECIFIED Status: Chronic Qualifiers: Chronic kidney disease stage 3 subtype: stage 3a (GFR 45-59) Qualified Code(s): N18.31 - Chronic kidney disease, stage 3a - Plan old records reviewed/req We will increase Imdur 60 mg daily and add amlodipine 10 mg daily for better blood pressure control Continue hydralazine Patient had abnormal stress test as an outpatient basis, he will need cardiac catheterization, will defer that decision to cardiology, if patient is plan for cardiac catheterization then will consider discussing with the adult protective caseworker whether this patient qualifies for inpatient or not, Patient is also okay to get cardiac catheterization as an outpatient basis, Pending above will consider discharge today or tomorrow
[2020-09-22 13:15] VITALS: BP 146/65
== END 2020-09-22 16:20 | disposition home or self-care (01) ==
LOC: ERS 19:07 → 2NO 21:57
PROVIDERS: ADMIT Internal Medicine; ATTEND Internal Medicine
DX: R07.2 Precordial pain (principal); R77.8 Other specified abnormalities of plasma proteins; I25.10 Atherosclerotic heart disease of native coronary artery without angina pectoris; E11.40 Type 2 diabetes mellitus with diabetic neuropathy, unspecified; E78.5 Hyperlipidemia, unspecified; I13.0 Hypertensive heart and chronic kidney disease with heart failure and stage 1 through stage 4 chronic kidney disease, or unspecified chronic kidney disease; E11.22 Type 2 diabetes mellitus with diabetic chronic kidney disease; N18.31 Chronic kidney disease, stage 3a; I50.30 Unspecified diastolic (congestive) heart failure; G47.33 Obstructive sleep apnea (adult) (pediatric); R82.71 Bacteriuria; E78.00 Pure hypercholesterolemia, unspecified; Z79.02 Long term (current) use of antithrombotics/antiplatelets; Z79.82 Long term (current) use of aspirin; Z79.899 Other long term (current) drug therapy; Z95.5 Presence of coronary angioplasty implant and graft; Z20.822 Contact with and (suspected) exposure to COVID-19
CPT/HCPCS: 71045; 71275; 80048; 80061; 82550; 82553; 82962 ×2; 83036; 83690; 83735; 83880; 84484 ×4; 85025; 85379; 87086; 93005; 94660; 94760; 99285; U0003; U0005; 36415; 36416; 80053; 81003; 81015; 84443; 87635; 96374; 96375; G0378; J0360; Q9967

== ENCOUNTER 2021-05-09 10:25 | Outpatient (CLI) | payer MEDICARE | END 2021-05-09 10:26 | disposition home or self-care (01) | LOC: BICULT 10:25 | PROVIDERS: ATTEND Specialist | DX: R79.1 Abnormal coagulation profile (principal) | CPT/HCPCS: 93970 ==

== ENCOUNTER 2024-09-04 10:10 | Outpatient (CLI) | payer MEDICARE, OTHER | END 2024-09-04 10:11 | disposition home or self-care (01) | LOC: BICRAD 10:10 | PROVIDERS: ATTEND Specialist | DX: M25.562 Pain in left knee (principal); M17.12 Unilateral primary osteoarthritis, left knee; I70.209 Unspecified atherosclerosis of native arteries of extremities, unspecified extremity ==

== ENCOUNTER 2025-04-01 21:27 | Observation (INO) | payer OTHER ==
[2025-04-02 00:39] LABS: #Basophils Less than 0.03 10x3/uL (0.0-0.2); #Eosinophils 0.23 10x3/uL (0.0-0.7); #Monocytes 0.69 10x3/uL (0.11-0.59); #Neutrophils 3.21 10x3/uL (1.40-6.50); %Basophils 0.4 % (0.0-1.0); %Eosinophils 4.2 % (0.0-10.0); %Lymphocytes 23.6 % (21.0-51.0); %Monocytes 12.6 % (0.0-10.0); %Neutrophils 58.8 % (42.0-75.0); Hematocrit 33.0 % (42.0-52.0); Hemoglobin 11.3 g/dL (14.0-18.0); Mean Corpuscular Hemoglobin 30.8 pg (27.0-31.0); Mean Corpuscular Volume 89.9 fL (78.0-98.0); Platelet Count 136 10x3/uL (130-400); Red Blood Cell (RBC) Count 3.67 mill/uL (4.70-6.10); White Blood Cell (WBC) Count 5.46 10x3/uL (4.8-10.8)
[2025-04-02 01:10] LABS: ALT (SGPT) 14 U/L (Less than 45); AST (SGOT) 26 U/L (11-34); Albumin 3.9 g/dL (3.1-4.5); Alkaline Phosphatase 58 U/L (40-110); Anion Gap 15 mmol/L (10-20); BUN (Urea Nitrogen) 24 mg/dL (8.4-25.7); Bilirubin, Total 0.5 mg/dL (0.3-1.2); Calc. Creatinine Clearance 0 mL/min (70-130); Calcium 9.0 mg/dL (7.8-10.44); Carbon Dioxide 24 mmol/L (23-31); Chloride 102 mmol/L (98-107); Globulin 3.3 g/dL (2.4-3.5); Glucose 99 mg/dL (83-110); Potassium 4.2 mmol/L (3.5-5.1); Sodium 137 mmol/L (136-145)
[2025-04-02] MEDS ORDERED: hydrALAZINE 20 MG/ML VIAL ONE (02:57)
[2025-04-02] MEDS ORDERED: Furosemide 20 MG (2 mL) VIAL ONE (02:57)
[2025-04-02] MEDS ORDERED: Dextrose 50% Abboject 50 ML SYRINGE SLOW IVP PRN (03:34)
[2025-04-02] MEDS ORDERED: Glucagon 1 MG/ML KIT IM PRN (03:34)
[2025-04-02] MEDS ORDERED: Ondansetron PF 4 MG/2 ML Vial IVP PRN (03:36)
[2025-04-02 05:03] LABS: Cardiac Risk 3.0 (Less than 4.5); Cholesterol 119.0 mg/dl (< 200 Desired); HDL Cholesterol 40.0 mg/dL (>60 Neg Risk); LDL Cholesterol, Calculated 66.0 mg/dL; Triglycerides 63.0 mg/dL (Less than 150)
[2025-04-02] MEDS: Metoprolol Succinate XL 25 MG ER.TAB PO SCH (05:35)
[2025-04-02 06:12] VITALS: BMI 40.3
[2025-04-02] MEDS: Famotidine 20 MG TAB PO SCH (07:53)
[2025-04-02] MEDS: Gabapentin 300 MG CAP PO SCH (07:53)
[2025-04-02] MEDS: PNEUMOC 20-VAL CONJ-DIP CRM/PF 0.5 ML SYRINGE IM ONE (07:57)
[2025-04-02] MEDS: Lidocaine 2% Viscous Solution 10 ML, Aluminum & Magnesium Hydroxide 30 ML SSW SCH (12:54)
[2025-04-02] MEDS ORDERED: Simvastatin 20 MG TAB PO SCH (21:00)
[2025-04-02] MEDS: Enoxaparin 30 MG (0.3 mL) SYRINGE SC SCH (21:42)
[2025-04-03 12:52] VITALS: TEMP 98.1
[2025-04-03 16:44] VITALS: BP 146/65
[2025-04-03] MEDS ORDERED: Enoxaparin 40 MG (0.4 mL) SYRINGE SC SCH (21:00)
== END 2025-04-03 18:05 | disposition home or self-care (01) ==
LOC: ERS 21:27 → OBS 04-02 03:37
PROVIDERS: ADMIT Student in an Organized Health Care Education/Training Program; ATTEND Internal Medicine
PROC: B24BZZZ Ultrasonography of Heart with Aorta (ICD-10-PCS; principal; 2025-04-01)
DX: R07.89 Other chest pain (principal); I25.10 Atherosclerotic heart disease of native coronary artery without angina pectoris; I08.3 Combined rheumatic disorders of mitral, aortic and tricuspid valves; I13.0 Hypertensive heart and chronic kidney disease with heart failure and stage 1 through stage 4 chronic kidney disease, or unspecified chronic kidney disease; E11.22 Type 2 diabetes mellitus with diabetic chronic kidney disease; N18.9 Chronic kidney disease, unspecified; E11.40 Type 2 diabetes mellitus with diabetic neuropathy, unspecified; E78.5 Hyperlipidemia, unspecified; I50.9 Heart failure, unspecified; E66.01 Morbid (severe) obesity due to excess calories; Z68.41 Body mass index [BMI] 40.0-44.9, adult; Z79.02 Long term (current) use of antithrombotics/antiplatelets; Z79.4 Long term (current) use of insulin; Z79.899 Other long term (current) drug therapy
CPT/HCPCS: 71045; 80061; 82962 ×2; 83036; 83880; 84484 ×2; 93005; 93306; 97116; J0360; J1650; J1940; 36415; 36416; 80053; 84443; 85025; 96372; 96374; G0378; J1815

== ENCOUNTER 2025-04-19 13:12 | Outpatient (CLI) | payer OTHER | END 2025-04-19 13:13 | disposition home or self-care (01) | LOC: SCSMRI 13:12 | PROVIDERS: ATTEND Urology | DX: R97.20 Elevated prostate specific antigen [PSA] (principal) | CPT/HCPCS: 72197 ==

== ENCOUNTER 2025-05-23 23:40 | Observation (INO) | payer OTHER ==
[2025-05-24 00:16] LABS: Bacteria/HPF None Seen HPF (None Seen); CAUTI Indications for Culture Dysuria,urgency,freq; Glucose, Urine (Dipstick) Normal (Negative); Leukocyte Negative Leu/uL (Negative); Protein, Urine (Dipstick) Negative (Neg-Trace); RBC/HPF 0-3 HPF (0-3); Specific Gravity, Urine 1.005 (1.002-1.036); WBC/HPF 0-3 HPF (0-3)
[2025-05-24 00:20] LABS: Urine Culture Reflex No No
[2025-05-24 00:26] LABS: #Basophils Less than 0.03 10x3/uL (0.0-0.2); #Eosinophils 0.28 10x3/uL (0.0-0.7); #Monocytes 0.47 10x3/uL (0.11-0.59); #Neutrophils 2.72 10x3/uL (1.40-6.50); %Basophils 0.4 % (0.0-1.0); %Eosinophils 6.1 % (0.0-10.0); %Lymphocytes 24.0 % (21.0-51.0); %Monocytes 10.2 % (0.0-10.0); %Neutrophils 58.9 % (42.0-75.0); Hematocrit 35.5 % (42.0-52.0); Hemoglobin 11.4 g/dL (14.0-18.0); Mean Corpuscular Hemoglobin 29.8 pg (27.0-31.0); Mean Corpuscular Volume 92.7 fL (78.0-98.0); Platelet Count 154 10x3/uL (130-400); Red Blood Cell (RBC) Count 3.83 mill/uL (4.70-6.10); White Blood Cell (WBC) Count 4.62 10x3/uL (4.8-10.8)
[2025-05-24 00:41] LABS: ALT (SGPT) 12 U/L (Less than 45); AST (SGOT) 29 U/L (11-34); Albumin 4.2 g/dL (3.1-4.5); Alkaline Phosphatase 64 U/L (40-110); Anion Gap 13 mmol/L (10-20); BUN (Urea Nitrogen) 24 mg/dL (8.4-25.7); Bilirubin, Total 0.5 mg/dL (0.3-1.2); Calc. Creatinine Clearance 0 mL/min (70-130); Calcium 9.7 mg/dL (7.8-10.44); Carbon Dioxide 29 mmol/L (23-31); Chloride 101 mmol/L (98-107); Globulin 3.7 g/dL (2.4-3.5); Glucose 98 mg/dL (83-110); Potassium 4.1 mmol/L (3.5-5.1); Sodium 139 mmol/L (136-145)
[2025-05-24] MEDS ORDERED: Acetaminophen 325 MG TAB PO PRN (04:54)
[2025-05-24] MEDS ORDERED: Ondansetron PF 4 MG/2 ML Vial IVP PRN (04:54)
[2025-05-24] MEDS ORDERED: Furosemide 40 MG (4 mL) VIAL ONE (05:00)
[2025-05-24] MEDS ORDERED: Aspirin Chewable 81 MG TAB ONE (05:01)
[2025-05-24 07:22] VITALS: TEMP 98.3; BMI 37.9
[2025-05-24 07:27] LABS: Cardiac Risk 2.9 (Less than 4.5); Cholesterol 135.0 mg/dl (< 200 Desired); HDL Cholesterol 47.0 mg/dL (>60 Neg Risk); LDL Cholesterol, Calculated 76.0 mg/dL; Triglycerides 58.0 mg/dL (Less than 150)
[2025-05-24] MEDS ORDERED: Melatonin 3 MG TAB PO PRN (08:32)
[2025-05-24] MEDS ORDERED: Electrolyte Replacement Protocol 1 EACH FS SCH (08:45)
[2025-05-24] MEDS: Famotidine 20 MG TAB PO SCH (11:57)
[2025-05-24] MEDS: Heparin 5,000 UNITS/ML VIAL SC SCH (12:00)
[2025-05-24 16:49] VITALS: BP 148/71
== END 2025-05-24 17:33 | disposition home or self-care (01) ==
LOC: ERS 23:40 → 2SE 05-24 04:56
PROVIDERS: ADMIT Internal Medicine; ATTEND Student in an Organized Health Care Education/Training Program
DX: R07.9 Chest pain, unspecified (principal); I13.0 Hypertensive heart and chronic kidney disease with heart failure and stage 1 through stage 4 chronic kidney disease, or unspecified chronic kidney disease; I50.9 Heart failure, unspecified; N18.30 Chronic kidney disease, stage 3 unspecified; I25.10 Atherosclerotic heart disease of native coronary artery without angina pectoris; E11.22 Type 2 diabetes mellitus with diabetic chronic kidney disease; E66.01 Morbid (severe) obesity due to excess calories; Z68.37 Body mass index [BMI] 37.0-37.9, adult; Z95.5 Presence of coronary angioplasty implant and graft; Z79.82 Long term (current) use of aspirin; Z79.899 Other long term (current) drug therapy
CPT/HCPCS: 71045; 78452; 80053; 80061; 81001; 83036; 83880; 84484 ×2; 85025; 93005; 93017; 93971; 96374; 99285; A9502; J1644; J1940; J2785 ×2; 36415